=== PATIENT | female | born 1985 ===

== ENCOUNTER 2020-03-03 15:46 | Emergency (ER) | payer OTHER, SELFPAY ==
[2020-03-03 17:04] VITALS: BP 102/57; PULSE 94; RESP 16; TEMP 38.2; O2SAT 100; BMI 22.4
--- NOTE | 2020-03-03 17:09 | ED_ITS ---
HPI - General Adult General Chief complaint: General Medical Stated complaint: back pain Time Seen by Provider: 03/03/20 17:09 Source: patient Mode of arrival: ambulatory Limitations: no limitations History of Present Illness HPI narrative: This is a 35-year-old female with past medical history that is significant for migraine headaches, history of bilateral kidney stones and history of a acute pyelonephritis with surgical history of appendectomy patient, Caesarean section and status post tubal ligation who presents today with complaint right flank pain with history of kidney stones and states that she usually gets UTI with flank pain but no dysuria or other symptoms. States she has had similar symptoms in the past with prior UTI. Additionally she also reports that she has had a left breast lump which she actually had a mammogram done yesterday [facility] and was told she had multiple lumps in the left breast awaiting further evaluation of this. States symptoms going on for 1 day in relation to the flank pain. There is no nausea vomiting or diarrhea. Onset (ago): day(s) (1) Quality: aching Relieving factors: none Exacerbating factors: none Treatments prior to arrival: none Related Data Previous Rx's Medication Instructions Recorded cefuroxime axetil 500 mg PO BID 7 Days #14 tab 03/03/20 ibuprofen 800 mg PO Q8H PRN #30 tab 03/03/20 sulfamethoxazole-trimethoprim 1 tab PO Q12H 7 Days #14 tab 03/03/20 [Bactrim DS] cefuroxime axetil 500 mg PO Q12H #14 tab 03/04/20 sulfamethoxazole-trimethoprim 1 tab PO Q12H #14 tab 03/04/20 [Bactrim DS] Allergies Allergy/AdvReac Type Severity Reaction Status Date / Time ethinyl estradiol [NuvaRing] Allergy Unknown yeast Verified 07/30/19 00:00 infection etonogestrel [NuvaRing] Allergy Unknown yeast Verified 07/30/19 00:00 infection medroxyprogesterone Allergy Unknown facial acne Verified 07/30/19 00:00 [Depo-Provera] No Known Allergies Allergy Unverified 11/26/19 16:12 Review of Systems Review of Systems: Constitutional: No Weight loss, No Fever, + Chills, No Night Sweats, No Fatigue, No Malaise ENT/Mouth: No Hearing loss, No Ear Pain, No Nasal Congestion, No Sinus Pain, No Hoarseness, No sore throat, No Rhinorrhea, No Swallowing Difficulty Eyes: No Eye Pain, No Swelling, No Redness, No Foreign Body, No Discharge, No Vision Changes Cardiovascular: No Chest Pain, No SOB, No Dyspnea on Exertion, No Orthopnea, No Edema, No Palpitations Respiratory: No Cough, No Sputum, No Wheezing, No Smoke Exposure, No Dyspnea Gastrointestinal: No Nausea, No Vomiting, No Diarrhea, No Constipation, No abdominal Pain, No Hematochezia, No Melena Genitourinary: no irregular bleeding, No Dysuria, No Urinary Frequency, No Hematuria, No Urinary Incontinence, No Urgency, + Flank Pain, No Urinary Flow Changes, No Hesitancy Musculoskeletal: No joint pain, No Myalgias, No Joint Swelling Skin: No Skin Lesions, No rash Neuro: No Weakness, No Numbness, No Paresthesias, No Loss of Consciousness, No Dizziness, No Headache Psych: No Social Issues Heme/Lymph: No Bruising, No Bleeding,No Lymphadenopathy Endocrine: No Polyuria, No Polydipsia, No Temperature Intolerance [facility] Past Medical History Medical History (Updated 03/04/20 @ 12:26 by Sumanth Brannon NP) Kidney stones Migraine headache Pyelonephritis Surgical History (Updated 03/04/20 @ 12:26 by Sumanth Brannon NP) H/O tubal ligation : 5 Para: 5 Social History Social History Advance Directives: No Advance Directives Information Provided: Yes Physical Exam Vital Signs: Vital Signs: Last Vital Signs Temp 100.1 F 03/03/20 18:00 Pulse 66 03/03/20 21:08 Resp 18 03/03/20 21:08 BP 96/57 L 03/03/20 21:08 Pulse Ox 98 03/03/20 21:08 Body Mass Index 22.4 Reviewed Const: General: cooperative and healthy appearing; No acute distress or intoxicated appearing Nutritional Appearance: average body habitus Orientation/consciousness: patient oriented x3 HENMT: Head: Yes normal to inspection Ears: hearing grossly normal bilaterally Eyes: General: appearance normal, both eyes and all related structures Visual Still: normal visual still by confrontation Neck: Neck: Yes normal visual inspection, No positive Brudzinski's sign, No positive Kernig's sign and No tender Thyroid: Thyroid normal Chest: Other: Nirupa optical technician present for color tester Chest palpation & i nspection: normal inspection of the chest, normal palpation of entire chest wall and no crepitus Breast/axilla inspection: normal inspection of the axillae Breast/axilla palpation: normal palpation of the axillae and abnormal palpation of the axilla left mass, tenderness and other (at 10 o'clock ); no induration Resp: Effort & Inspection: normal respiratory effort Auscultation: clear to auscultation bilaterally Cardio: Jugular venous distension: no JVD GI: Inspection: Yes normal to inspection Percussion: Yes normal to percussion Auscultation: normal bowel sounds : General: Yes no CVA tenderness Back/Spine/Pelvis: Back: no CVA tenderness Skin: General skin exam: no rashes or lesions noted Neuro: General: patient oriented x3 Extrem: General: Yes normal to inspection Course Course Course Narrative: Urine culture from 09/02/2019 grew out E coli sensitive to multiple antibiotics including ampicillin, ceftriaxone, gentamicin, levofloxacin, nitrofurantoin, Bactrim. ESBL negative. Medical Decision Making [facility] Narrative Medical decision making narrative: Lab shows leukocytosis of 16, negative lactic acid, renal function intact. Urine equivocal will send for culture. Given dose of antibiotics for presumed urinary source, as relates to the left breast lump had evaluation at the breast center in [place] had mammo done today will follow-up for further evaluation treatment. Findings/plan reviewed urine/blood cultures sent. Will discharge home as she is requesting to go home overall nontoxic appearing sure decision making regarding when to return, worsening and systemic symptoms. Medical Records Medical records reviewed: Yes I reviewed the patient's medical records. Medical records narrative: 09/02/2019 admission/discharge reviewed admitted for acute pyelonephritis, Gram-negative bacteremia Lab Data Result diagrams: 03/03/20 18:05 03/03/20 18:05 Labs: Lab Results 03/03/20 03/03/20 03/03/20 Range/Units 18:05 18:05 18:05 WBC 16.6 H (4.8-10.8) X10*3/uL RBC 3.58 L (4.20-5.50) X10*6/uL Hgb 11.8 L (12.0-16.0) g/dl Hct 35.6 L (37-47) % MCV 99.4 H (80-98) fL MCH 33.0 (27.0-33.0) pg MCHC 33.1 (31.0-35.0) g/dl RDW 11.9 (11.0-16.0) % Plt Count 214 (160-400) X10*3/uL MPV 9.7 (9.4-12.3) fL Immature Gran % (Auto) 0.5 H (0.0-0.4) % Neut % (Auto) 92.8 H (45-73) % Lymph % (Auto) 2.4 L (20-40) % [place] % (Auto) 4.0 (2-11) % Eos % (Auto) 0.1 (0-4) % Baso % (Auto) 0.2 (0-2) % Lymph # (Auto) 0.4 L (1.2-4.9) X10*3/uL [place] # (Auto) 0.7 (0.1-1.2) X10*3/uL Eos # (Auto) 0.0 (0.0-0.4) X10*3/uL Baso # (Auto) 0.0 (0.0-0.2) X10*3/uL Abs Immat Gran (auto) 0.09 H (0.00-0.03) X10*3/uL Absolute Neuts (auto) 15.4 H (2.0-8.3) X10*3/uL Absolute Nucleated RBC 0.000 (0.0-0.012) X10*3/uL Nucleated RBC % (auto) 0.0 (0.0-0.2) /100WBC Smear Tech's Comments VERIFIED PT 13.5 H (10.8-13.0) SEC INR 1.1 (0.9-1.1) APTT 38.4 H (24.1-38.0) SEC Sodium 135 (135-145) mmol/L Potassium 3.6 (3.3-5.1) mmol/l Chloride 101 (96-108) mmol/L Carbon Dioxide 25 (22-29) mmol/L Anion Gap 13 (12-20) BUN 18 H (9-16) mg/dL Creatinine 0.77 (0.5-1.4) mg/dL Estim Creat Clear Calc 72.5 Estimated GFR > 60 Random Glucose 91 (60-115) mg/dL Lactic Acid (0.5-2.0) mmol/L Calcium 8.7 (8.4-10.2) mg/dL Total Bilirubin 0.5 (0.0-1.0) mg/dL AST 21 (5-31) U/L ALT 16 (0-31) U/L Alkaline Phosphatase 49 (39-117) U/L Total Protein 6.9 (6.5-8.0) g/dL Albumin 4.3 (3.5-5.0) g/dL Urine Color Urine Appearance Urine pH (5.0-8.0) Ur Specific [place] (1.005-1.025) Urine Protein (NEG-TRACE) MG/DL Urine Glucose (UA) (NEG) MG/DL Urine Ketones (NEG) MG/DL Urine Blood (NEG) Urine Nitrite (NEG) Ur Leukocyte Esterase (NEG) Urine RBC (0) /HPF Urine WBC (0-4) /HPF Ur Squamous Epith Cells /LPF Urine Bacteria /LPF Urine Test (NEGATIVE) Coronavirus (PCR) (Negative) Influenza Type A (PCR) (Negative) Influenza Type B (PCR) (Negative) RSV RNA Qual (PCR) (Negative) 03/03/20 03/03/20 03/03/20 Range/Units 18:05 18:06 19:02 WBC (4.8-10.8) X10*3/uL RBC (4.20-5.50) X10*6/uL Hgb (12.0-16.0) g/dl Hct (37-47) % MCV (80-98) fL MCH (27.0-33.0) pg MCHC (31.0-35.0) g/dl RDW (11.0-16.0) % Plt Count (160-400) X10*3/uL MPV (9.4-12.3) fL Immature Gran % (Auto) (0.0-0.4) % Neut % (Auto) (45-73) % Lymph % (Auto) (20-40) % [place] % (Auto) (2-11) % Eos % (Auto) (0-4) % Baso % (Auto) (0-2) % Lymph # (Auto) (1.2-4.9) X10*3/uL [place] # (Auto) (0.1-1.2) X10*3/uL Eos # (Auto) (0.0-0.4) X10*3/uL Baso # (Auto) (0.0-0.2) X10*3/uL Abs Immat Gran (auto) (0.00-0.03) X10*3/uL Absolute Neuts (auto) (2.0-8.3) X10*3/uL Absolute Nucleated RBC (0.0-0.012) X10*3/uL Nucleated RBC % (auto) (0.0-0.2) /100WBC Smear Tech's Comments PT (10.8-13.0) SEC INR (0.9-1.1) APTT (24.1-38.0) SEC Sodium (135-145) mmol/L Potassium (3.3-5.1) mmol/l Chloride (96-108) mmol/L Carbon Dioxide (22-29) mmol/L Anion Gap (12-20) BUN (9-16) mg/dL Creatinine (0.5-1.4) mg/dL Estim Creat Clear Calc Estimated GFR Random Glucose (60-115) mg/dL Lactic Acid 0.7 (0.5-2.0) mmol/L Calcium (8.4-10.2) mg/dL Total Bilirubin (0.0-1.0) mg/dL AST (5-31) U/L ALT (0-31) U/L Alkaline Phosphatase (39-117) U/L Total Protein (6.5-8.0) g/dL Albumin (3.5-5.0) g/dL Urine Color YELLOW Urine Appearance CLEAR Urine pH 6.5 (5.0-8.0) Ur Specific [place] 1.020 (1.005-1.025) Urine Protein NEG (NEG-TRACE) MG/DL Urine Glucose (UA) NEG (NEG) MG/DL Urine Ketones NEG (NEG) MG/DL Urine Blood 3+ H (NEG) Urine Nitrite NEG (NEG) Ur Leukocyte Esterase NEG (NEG) Urine RBC 10-14 H (0) /HPF Urine WBC 0 (0-4) /HPF Ur Squamous Epith Cells TRACE /LPF Urine Bacteria NONE /LPF Urine Test NEGATIVE (NEGATIVE) Coronavirus (PCR) NEGATIVE (Negative) Influenza Type A (PCR) NEGATIVE (Negative) Influenza Type B (PCR) NEGATIVE (Negative) RSV RNA Qual (PCR) NEGATIVE (Negative) Imaging Data Abdominal/pelvis CT: Radiologist's impression: Sign [address] [address] [address] Scan Report Signed Patient: Angeline Riggs GMR#: [id number] : 1985Acct:[id number] Age/Sex: 35 / FADM Date: 03/03/20 Loc: HO.ED Attending Dr: Ordering Physician: Sumanth Brannon NP Date of Service: 03/03/20 Procedure(s): CT abdomen pelvis wo con Accession Number(s): [id number] cc: Sumanth Brannon CARTOGRAPHIC DRAFTER~ EXAMINATION: CT ABDOMEN AND PELVIS WITHOUT CONTRAST CLINICAL INFORMATION: Fever and flank pain COMPARISON: 08/31/2019 TECHNIQUE: Multidetector volumetric imaging was performed from the superior aspect of the liver through the pubic symphysis. Sagittal and coronal reformatted images were obtained on the technologist's workstation. This CT examination was performed using dose optimization techniques as appropriate, variously including the following: *Automated exposure control *Adjustment of mA and/or kV according to patient size (this includes techniques or standardized protocols for targeted exams where dose is matched to indication/reason for exam; i.e. extremities or head) *Use of iterative reconstruction technique DLP: 343 mGy-cm FINDINGS: LUNG BASES: The visualized lung bases are unremarkable. LIVER, GALLBLADDER, AND BILIARY TREE: The liver is normal in size, shape, and attenuation. No focal hepatic lesion or biliary ductal dilatation is present. The gallbladder is unremarkable with no evidence of radiopaque gallstones, gallbladder wall thickening, or obvious pericholecystic inflammatory changes. PANCREAS: Unremarkable. SPLEEN: Unremarkable. ADRENAL GLANDS: Unremarkable. KIDNEYS AND URETERS: The kidneys are normal in size, shape, and attenuation. Bilateral nonobstructive intrarenal calculi #4 on the left and one on the right. Left-sided calculi range in size from punctate to 3 mm. The right-sided calculus is punctate. No hydronephrosis, or hydroureter. No perinephric stranding. BLADDER: Unremarkable. GASTROINTESTINAL TRACT: No bowel related abnormalities. ABDOMINAL WALL: No significant hernia is appreciated. LYMPH NODES: Normal. VASCULAR: Unremarkable. PELVIC VISCERA: Uterus and adnexa unremarkable. OSSEOUS STRUCTURES: Unremarkable. CT/CT abdomen pelvis wo con IMPRESSION: Bilateral nonobstructive intrarenal calculi as described. Previously, there was a 1 to 2 mm calculus within the interpolar region of the right kidney which is no longer present. This may have passed in the interim. No ureteral calculi or hydronephrosis. Dictated By:EVONNE PONCE MD Signed By:<Electronically signed by EVONNE PONCE MD in OV>03/03/20 193 DD/ 30 TD/TT: Recreational Director: JABARI Chest x-ray: Radiologist's impression: [address] [address] XRay Report Signed Patient: Angeline Riggs GMR#: [id number] : 1985Acct:[id number] Age/Sex: 35 / FADM Date: 03/03/20 Loc: .ED Attending Dr: Ordering Physician: Sumanth Brannon NP Date of Service: 03/03/20 Procedure(s): XR chest 1V Accession Number(s): [id number] cc: Sumanth Brannon NP~ EXAMINATION: XR CHEST CLINICAL INFORMATION: Fever. Chest pain COMPARISON: None TECHNIQUE: Frontal portable view of the chest was obtained. 6:28 PM FINDINGS: No significant abnormality is noted involving the heart, lungs, mediastinum, bony thorax or soft tissues. XR/XR chest 1V IMPRESSION: Unremarkable examination. Dictated By:TARUN LIZAMA MD Signed By:<Electronically signed by TARUN LIZAMA MD in OV>03/03/20 184 DD/ 30 TD/TT: Recreational Director: SANGITA Discharge Plan Discharge Clinical Impression: Breast lump or mass, Urinary tract infection Patient Disposition: Home, Self-Care Instructions: Breast Mass (ED), Urinary Urgency and Frequency (DC) Additional Instructions: Take your medications as prescribed Follow-up with the breast Center as planned for further investigation into the left breast lump Return if any concerns or worsening symptoms Thank you Prescriptions: New cefuroxime axetil 500 mg tablet 500 mg PO BID 7 Days Qty: 14 RF: 0 sulfamethoxazole-trimethoprim [Bactrim DS] 800-160 mg tablet 1 tab PO Q12H 7 Days Qty: 14 RF: 0 ibuprofen 800 mg tablet 800 mg PO Q8H PRN (Reason: pain) Qty: 30 RF: 0 cefuroxime axetil 500 mg tablet 500 mg PO Q12H Qty: 14 RF: 0 sulfamethoxazole-trimethoprim [Bactrim DS] 800-160 mg tablet 1 tab PO Q12H Qty: 14 RF: 0 Referrals: [facility] [place] [Other] - 2 days Michelle Wong MD [Primary Care Provider] - 1 week Discharge Date/Time: 03/03/20 21:16
[2020-03-03 18:00] VITALS: BP 92/37; PULSE 77; RESP 17; TEMP 37.8
[2020-03-03 18:22] LABS: Glucose Urine UA NEG (NEG); Leukocyte Esterase Urine NEG (NEG); Nitrite Urine NEG (NEG); PH 6.5 (5.0-8.0); Urine Blood 3+ (NEG); Urine Ketones NEG (NEG); Urine Protein NEG (NEG-TRACE)
[2020-03-03 18:23] LABS: Appearance Urine CLEAR; Color Urine YELLOW
[2020-03-03 18:28] LABS: INTERNATIONAL NORM RATIO 1.1 (0.9-1.1); Prothrombin Time 13.5 SEC (10.8-13.0)
[2020-03-03 18:31] LABS: Partial Thromboplastin Time 38.4 SEC (24.1-38.0)
--- NOTE | 2020-03-03 18:31 | XR_ITS ---
EXAMINATION: XR CHEST CLINICAL INFORMATION: Fever. Chest pain COMPARISON: None TECHNIQUE: Frontal portable view of the chest was obtained. 6:28 PM FINDINGS: No significant abnormality is noted involving the heart, lungs, mediastinum, bony thorax or soft tissues. XR/XR chest 1V IMPRESSION: Unremarkable examination.
--- NOTE | 2020-03-03 18:31 | CT_ITS ---
EXAMINATION: CT ABDOMEN AND PELVIS WITHOUT CONTRAST CLINICAL INFORMATION: Fever and flank pain COMPARISON: 08/31/2019 TECHNIQUE: Multidetector volumetric imaging was performed from the superior aspect of the liver through the pubic symphysis. Sagittal and coronal reformatted images were obtained on the technologist's workstation. This CT examination was performed using dose optimization techniques as appropriate, variously including the following: *Automated exposure control *Adjustment of mA and/or kV according to patient size (this includes techniques or standardized protocols for targeted exams where dose is matched to indication/reason for exam; i.e. extremities or head) *Use of iterative reconstruction technique DLP: 343 mGy-cm FINDINGS: LUNG BASES: The visualized lung bases are unremarkable. LIVER, GALLBLADDER, AND BILIARY TREE: The liver is normal in size, shape, and attenuation. No focal hepatic lesion or biliary ductal dilatation is present. The gallbladder is unremarkable with no evidence of radiopaque gallstones, gallbladder wall thickening, or obvious pericholecystic inflammatory changes. PANCREAS: Unremarkable. SPLEEN: Unremarkable. ADRENAL GLANDS: Unremarkable. KIDNEYS AND URETERS: The kidneys are normal in size, shape, and attenuation. Bilateral nonobstructive intrarenal calculi #4 on the left and one on the right. Left-sided calculi range in size from punctate to 3 mm. The right-sided calculus is punctate. No hydronephrosis, or hydroureter. No perinephric stranding. BLADDER: Unremarkable. GASTROINTESTINAL TRACT: No bowel related abnormalities. ABDOMINAL WALL: No significant hernia is appreciated. LYMPH NODES: Normal. VASCULAR: Unremarkable. PELVIC VISCERA: Uterus and adnexa unremarkable. OSSEOUS STRUCTURES: Unremarkable. CT/CT abdomen pelvis wo con IMPRESSION: Bilateral nonobstructive intrarenal calculi as described. Previously, there was a 1 to 2 mm calculus within the interpolar region of the right kidney which is no longer present. This may have passed in the interim. No ureteral calculi or hydronephrosis.
[2020-03-03 18:41] LABS: Basophils Percent Auto 0.2 % (0-2); Eosinophils Percent Auto 0.1 % (0-4); Hematocrit 35.6 % (37-47); Hemoglobin 11.8 g/dl (12.0-16.0); Imm Gran Abs Auto 0.09 X10*3/uL (0.00-0.03); Imm Gran Pct Auto 0.5 % (0.0-0.4); Lactic Acid 0.7 mmol/L (0.5-2.0); Lymphocytes Absolute Auto 0.4 X10*3/uL (1.2-4.9); Lymphocytes Percent Auto 2.4 % (20-40); MANUAL DIFF FLAG SCAN; Mean Corpuscular HGB Conc 33.1 g/dl (31.0-35.0); Mean Corpuscular Volume 99.4 fL (80-98); Mean Platelet Volume 9.7 fL (9.4-12.3); Monocytes Absolute Auto 0.7 X10*3/uL (0.1-1.2); Neutrophils Absolute Auto 15.4 X10*3/uL (2.0-8.3); Neutrophils Percent Auto 92.8 % (45-73); Platelet Count 214 X10*3/uL (160-400); Red Blood Count 3.58 X10*6/uL (4.20-5.50); Red Cell Distribution Width 11.9 % (11.0-16.0); SCAN SMEAR FLAG 1; White Blood Count 16.6 X10*3/uL (4.8-10.8)
[2020-03-03] MEDS: 0.9 % Sodium Chloride 1,000 ML 999 ML IV (18:43)
[2020-03-03] MEDS: Morphine Sulfate 4 MG/ML CARTRIDGE 2 MG IVPUSH (18:44)
[2020-03-03 18:46] LABS: Alanine Aminotransferase 16 U/L (0-31); Albumin Level 4.3 g/dL (3.5-5.0); Alkaline Phosphatase 49 U/L (39-117); Anion Gap 13 (12-20); Aspartate Amino Transferase 21 U/L (5-31); Bilirubin Total 0.5 mg/dL (0.0-1.0); Blood Urea Nitrogen 18 mg/dL (9-16); Calcium 8.7 mg/dL (8.4-10.2); Carbon Dioxide 25 mmol/L (22-29); Chloride 101 mmol/L (96-108); Creatinine Clr Calc Pharmacy 72.5; Estimated Glomerular Filt Rate > 60; Glucose Random 91 mg/dL (60-115); Potassium 3.6 mmol/l (3.3-5.1); Sodium 135 mmol/L (135-145); Total Protein 6.9 g/dL (6.5-8.0)
[2020-03-03 18:46] LABS: Squamous Epithelial Cell Urine TRACE /LPF; WBC Urine 0 /HPF (0-4)
[2020-03-03 18:47] LABS: UPreg QC Valid YES; Urine Pregnancy NEGATIVE (NEGATIVE)
[2020-03-03] MEDS: Acetaminophen 325 MG TABLET 975 MG PO (18:47)
[2020-03-03 19:33] LABS: SLIDE REVIEW VERIFIED
[2020-03-03 20:12] LABS: Influenza A PCR NEGATIVE (Negative); Influenza B PCR NEGATIVE (Negative); Resp Syncy Virus RNA Qual PCR NEGATIVE (Negative); SARS COV2 PCR INHOUSE NEGATIVE (Negative)
[2020-03-03] MEDS: Ketorolac Tromethamine 30 MG/ML VIAL IVPUSH (20:31)
[2020-03-03 21:08] VITALS: BP 96/57; PULSE 66; RESP 18; O2SAT 98
[2020-03-03] MEDS: levoFLOXacin 750 MG TABLET PO (21:09)
== END 2020-03-03 21:16 | disposition home or self-care (01) ==
PROVIDERS: Nurse Practitioner Primary Care; Emergency Provider Emergency Medicine; PCP Internal Medicine
DX: N63.20 Unspecified lump in the left breast, unspecified quadrant (principal); N39.0 Urinary tract infection, site not specified; Z20.828 Contact with and (suspected) exposure to other viral communicable diseases; Z87.442 Personal history of urinary calculi
CPT/HCPCS: 0241U; 36415; 71045; 74176; 80053; 81001; 81025; 83605; 85025; 85610; 85730; 87040; 96361; 96374; 96375; 99283; 99284; J1885; J2270

== ENCOUNTER 2020-03-05 19:38 | Emergency (ER) | payer OTHER, SELFPAY ==
[2020-03-05 19:51] VITALS: BP 111/64; PULSE 71; RESP 16; TEMP 37; O2SAT 98; BMI 22.2
== END 2020-03-05 21:41 | disposition left against medical advice (07) ==
PROVIDERS: Emergency Provider Emergency Medicine; PCP Internal Medicine
DX: R11.10 Vomiting, unspecified (principal); M54.5 Low back pain
CPT/HCPCS: 99282

== ENCOUNTER 2020-08-07 17:17 | Inpatient (IN) | payer OTHER, SELFPAY ==
--- NOTE | ~2020-08-07 | CT_ITS ---
EXAMINATION: CT ABDOMEN AND PELVIS WITHOUT CONTRAST CLINICAL INFORMATION: Flank pain. Fever. Prior pyelonephritis. COMPARISON: Post recent CT abdomen/pelvis dated 03/03/2020. TECHNIQUE: Multidetector volumetric imaging was performed from the superior aspect of the liver through the pubic symphysis. Sagittal and coronal reformatted images were obtained on the technologist's workstation. This CT examination was performed using dose optimization techniques as appropriate, variously including the following: *Automated exposure control. *Adjustment of mA and/or kV according to patient size (this includes techniques or standardized protocols for targeted exams where dose is matched to indication/reason for exam; i.e. extremities or head). *Use of iterative reconstruction technique. DLP: 332 mGy-cm FINDINGS: LUNG BASES: The visualized lung bases are unremarkable. LIVER, GALLBLADDER, AND BILIARY TREE: The liver is normal in size, shape, and attenuation. No focal hepatic lesion or biliary ductal dilatation is present. The gallbladder is nondistended with no evidence of radiopaque gallstones, gallbladder wall thickening, or obvious pericholecystic inflammatory changes. PANCREAS: Unremarkable. SPLEEN: Unremarkable. ADRENAL GLANDS: Unremarkable. KIDNEYS AND URETERS: The kidneys are normal in size, shape, and attenuation. There is a right midpole renal stone measuring 0.2 cm (axial image 228/661). There are multiple left-sided renal stones with the largest in the lower pole measuring up to 0.4 cm. Findings are unchanged when compared to the prior examination. No ureteral stone. No hydronephrosis or hydroureter. No perinephric stranding. BLADDER: Nondistended. Circumferential wall thickening, which may be due to underdistention. Early cystitis could be considered in the appropriate clinical setting. GASTROINTESTINAL TRACT: No bowel wall thickening or associated inflammatory change. No small or large bowel obstruction. Appendix not identified. PERITONEAL CAVITY: No intra-abdominal free air or free fluid. No intra-abdominal mass or organized fluid collection/abscess formation. ABDOMINAL WALL: No significant hernia is appreciated. LYMPH NODES: Normal. VASCULAR: Unremarkable. PELVIC VISCERA: The uterus and adnexa are unremarkable. OSSEOUS STRUCTURES: Unremarkable. CT/CT abdomen pelvis wo con IMPRESSION: 1. Bilateral renal stones are redemonstrated with the largest measuring up to 0.4 cm on the left. No ureteral stone. No hydronephrosis or hydroureter. No significant perinephric stranding. 2. Partially distended urinary bladder with circumferential wall thickening. Findings may be due to underdistention. Early cystitis could be considered in the appropriate clinical setting.
[2020-08-07 17:21] VITALS: BP 95/51; PULSE 94; RESP 16; TEMP 37.6; O2SAT 97; BMI 20.7
--- NOTE | 2020-08-07 17:36 | ED_ITS ---
HPI - Female Genitourinary General Chief complaint: Urogenital-Female Stated complaint: back pain, + fall Time Seen by Provider: 08/07/20 17:31 Source: patient Mode of arrival: ambulatory Limitations: no limitations History of Present Illness HPI Narrative: 35-year-old female with past medical history of salpingectomy, recurrent pyelonephritis, kidney stones presents with left-sided flank pain radiating around the pelvis, dysuria, subjective fevers and chills, and fatigue over the past 1 day. She does not describe chest pain or pressure, palpitations, shortness of breath, shortness of breath on exertion, abdominal distention, vomiting, diarrhea, constipation, hematuria, melena, hematochezia and edema. MD elicited complaint: back pain, flank pain and difficulty urinating Pertinent past history: pyelonephritis Onset (ago): day(s) (1) Location of symptoms: low back and flank Severity: severe Severity scale (1-10): 9 Quality of pain: aching Consistency: constant Vaginal discharge: none Vaginal bleeding: none Urinary symptoms: Dysuria and Urgency Relieving factors: none Associated symptoms: chills, nausea and back pain Treatment prior to arrival: none Patient : No Possible : other (Salpingectomy) Related Data Previous Rx's Medication Instructions Recorded cefuroxime axetil 500 mg PO BID 7 Days #14 tab 03/03/20 ibuprofen 800 mg PO Q8H PRN #30 tab 03/03/20 sulfamethoxazole-trimethoprim 1 tab PO Q12H 7 Days #14 tab 03/03/20 [Bactrim DS] cefuroxime axetil 500 mg PO Q12H #14 tab 03/04/20 sulfamethoxazole-trimethoprim 1 tab PO Q12H #14 tab 20 [Bactrim DS] Allergies Allergy/AdvReac Type Severity Reaction Status Date / Time ethinyl estradiol [NuvaRing] Allergy Unknown yeast Verified 08/07/20 17:26 infection etonogestrel [NuvaRing] Allergy Unknown yeast Verified 08/07/20 17:26 infection medroxyprogesterone Allergy Unknown facial acne Verified 08/07/20 17:26 [Depo-Provera] No Known Allergies Allergy Verified 08/07/20 17:26 Review of Systems Review of Systems: Constitutional: Subjective Fever, positive Chills ENT/Mouth: No sore throat Eyes: No Eye Pain, No Swelling, No Redness Cardiovascular: No Chest Pain, No SOB Respiratory: No Cough, No Sputum, No Wheezing Gastrointestinal: positive Nausea, no Vomiting, No Diarrhea, positive abdominal pain Genitourinary: positive Dysuria, positive urinary frequency, positive Hematuria, positive Flank Pain, positive hesitancy Musculoskeletal: No joint pain, No Myalgias Skin: No Skin Lesions, No rash Neuro: No Weakness, No Numbness, No Headache Psych: No Anxiety/Panic, No Depression Heme/Lymph: No Bruising, No Lymphadenopathy Endocrine: No Polyuria, No Polydipsia Yes all other systems are reviewed and are negative [facility] Past Medical History Attestation statement: The following information was validated with the patient. Source: old records reviewed Medical History Kidney stones Migraine headache Pyelonephritis Surgical History H/O tubal ligation Social History Social History Alcohol intake: never Smoked in Last 30 Days: No Use of substances other than those prescribed or required for medical reasons: No Advance Directives: No Advance Directives Information Provided: No Patient : No Physical Exam Vital Signs: Vital Signs: Last Vital Signs Temp 99.6 F 08/07/20 17:21 Pulse 94 08/07/20 17:21 Resp 16 08/07/20 20:07 BP 95/51 L 08/07/20 17:21 Pulse Ox 97 08/07/20 17:21 Body Mass Index 20.7 Appearance: Alert. Oriented X3. No acute distress. Eyes: Pupils equal, round and reactive to light. ENT: Pharynx normal. Neck: Normal inspection. Neck supple. CVS: Normal heart rate and rhythm. Pulses normal. Respiratory: No respiratory distress. Breath sounds normal. Abdomen: Soft and nontender. Positive bilateral CVA tenderness Skin: Skin warm and dry. Normal skin color. Normal skin turgor. Extremities: No lower extremity edema. Neuro: No motor deficit. No sensory deficit. Course Course Course Narrative: 35-year-old female with past medical history of recurrent pyelonephritis, kidney stones, salpingectomy presents with 1 day of flank pain, urinary symptoms, and subjective fevers and chills with fatigue. Based on patient's prior history, CT scan on 02/27 reviewed has had history of multiple kidney stones or pyelonephritis. Will order pain management, antiemetics, resuscitate with fluids, lab values and repeat CT scan to rule out pyelo. 6:37 p.m. Urinalysis positive for UTI, white count is 16.8, H and H 11.4/33.8 which is consistent with prior values. Will resuscitate fluids for sepsis protocol, give ceftriaxone for UTI. 7:15 p.m. Discussion with hospitalist regarding plan of care, plan is to admit for UTI sepsis. Discussion with patient, patient verbalized understanding of and agrees to plan of care. Consultations Consultation #1: jones Time: 19:15 MDM - Female Genitourinary MDM Narrative Medical decision making narrative: Pyelonephritis, hydro nephritis, kidney stones Differential Diagnosis Differential diagnosis: Likely urinary tract infection Medical Records Attestation: I reviewed the patient's medical records. Lab Data Attestation: I reviewed the patient's lab results. Result diagrams: 08/07/20 17:58 08/07/20 17:58 Labs: Lab Results 08/07/20 08/07/20 08/07/20 Range/Units 17:33 17:58 17:58 WBC 16.8 H (4.8-10.8) X10*3/uL RBC 3.42 L (4.20-5.50) X10*6/uL Hgb 11.4 L (12.0-16.0) g/dl Hct 33.8 L (37-47) % MCV 98.8 H (80-98) fL MCH 33.3 H (27.0-33.0) pg MCHC 33.7 (31.0-35.0) g/dl RDW 12.4 (11.0-16.0) % Plt Count 201 (160-400) X10*3/uL MPV 9.2 L (9.4-12.3) fL Immature Gran % (Auto) 0.5 H (0.0-0.4) % Neut % (Auto) 89.2 H (45-73) % Lymph % (Auto) 3.2 L (20-40) % [place] % (Auto) 6.8 (2-11) % Eos % (Auto) 0.1 (0-4) % Baso % (Auto) 0.2 (0-2) % Lymph # (Auto) 0.5 L (1.2-4.9) X10*3/uL [place] # (Auto) 1.1 (0.1-1.2) X10*3/uL Eos # (Auto) 0.0 (0.0-0.4) X10*3/uL Baso # (Auto) 0.0 (0.0-0.2) X10*3/uL Abs Immat Gran (auto) 0.08 H (0.00-0.03) X10*3/uL Absolute Neuts (auto) 15.0 H (2.0-8.3) X10*3/uL Absolute Nucleated RBC 0.000 (0.0-0.012) X10*3/uL Nucleated RBC % (auto) 0.0 (0.0-0.2) /100WBC Smear Tech's Comments VERIFIED PT 14.7 H (10.8-13.0) SEC INR 1.2 H (0.9-1.1) APTT 36.3 (24.1-38.0) SEC Sodium (135-145) mmol/L Potassium (3.3-5.1) mmol/L Chloride (96-108) mmol/L Carbon Dioxide (22-29) mmol/L Anion Gap (12-20) BUN (9-16) mg/dL Creatinine (0.5-1.4) mg/dL Estim Creat Clear Calc Estimated GFR Random Glucose (60-115) mg/dL Lactic Acid (0.5-2.0) mmol/L Calcium (8.4-10.2) mg/dL Magnesium (1.6-2.6) mg/dL Total Bilirubin (0.0-1.0) mg/dL Direct Bilirubin (0.0-0.5) mg/dL AST (5-31) U/L ALT (0-31) U/L Alkaline Phosphatase (39-117) U/L Total Protein (6.5-8.0) g/dL Albumin (3.5-5.0) g/dL Lipase (8-78) U/L Urine Color YELLOW Urine Appearance CLOUDY Urine pH 6.5 (5.0-8.0) Ur Specific [place] 1.010 (1.005-1.025) Urine Protein 1+ H (NEG-TRACE) MG/DL Urine Glucose (UA) NEG (NEG) MG/DL Urine Ketones NEG (NEG) MG/DL Urine Blood 3+ H (NEG) Urine Nitrite POS H (NEG) Ur Leukocyte Esterase 3+ H (NEG) Urine RBC 1-4 (0) /HPF Urine WBC 15-29 H (0-4) /HPF Ur Squamous Epith Cells 4+ /LPF Urine Bacteria 3+ /LPF 08/07/20 08/07/20 08/07/20 Range/Units 17:58 17:58 17:58 WBC (4.8-10.8) X10*3/uL RBC (4.20-5.50) X10*6/uL Hgb (12.0-16.0) g/dl Hct (37-47) % MCV (80-98) fL MCH (27.0-33.0) pg MCHC (31.0-35.0) g/dl RDW (11.0-16.0) % Plt Count (160-400) X10*3/uL MPV (9.4-12.3) fL Immature Gran % (Auto) (0.0-0.4) % Neut % (Auto) (45-73) % Lymph % (Auto) (20-40) % [place] % (Auto) (2-11) % Eos % (Auto) (0-4) % Baso % (Auto) (0-2) % Lymph # (Auto) (1.2-4.9) X10*3/uL [place] # (Auto) (0.1-1.2) X10*3/uL Eos # (Auto) (0.0-0.4) X10*3/uL Baso # (Auto) (0.0-0.2) X10*3/uL Abs Immat Gran (auto) (0.00-0.03) X10*3/uL Absolute Neuts (auto) (2.0-8.3) X10*3/uL Absolute Nucleated RBC (0.0-0.012) X10*3/uL Nucleated RBC % (auto) (0.0-0.2) /100WBC Smear Tech's Comments PT (10.8-13.0) SEC INR (0.9-1.1) APTT (24.1-38.0) SEC Sodium 136 (135-145) mmol/L Potassium 4.3 (3.3-5.1) mmol/L Chloride 103 (96-108) mmol/L Carbon Dioxide 25 (22-29) mmol/L Anion Gap 12 (12-20) BUN 18 H (9-16) mg/dL Creatinine 0.77 (0.5-1.4) mg/dL Estim Creat Clear Calc 76.2 Estimated GFR > 60 Random Glucose 113 (60-115) mg/dL Lactic Acid 1.0 (0.5-2.0) mmol/L Calcium 8.9 (8.4-10.2) mg/dL Magnesium 1.8 (1.6-2.6) mg/dL Total Bilirubin 0.8 (0.0-1.0) mg/dL Direct Bilirubin 0.3 (0.0-0.5) mg/dL AST 24 (5-31) U/L ALT 13 (0-31) U/L Alkaline Phosphatase 50 (39-117) U/L Total Protein 6.6 (6.5-8.0) g/dL Albumin 3.9 (3.5-5.0) g/dL Lipase 32 (8-78) U/L Urine Color Urine Appearance Urine pH (5.0-8.0) Ur Specific [place] (1.005-1.025) Urine Protein (NEG-TRACE) MG/DL Urine Glucose (UA) (NEG) MG/DL Urine Ketones (NEG) MG/DL Urine Blood (NEG) Urine Nitrite (NEG) Ur Leukocyte Esterase (NEG) Urine RBC (0) /HPF Urine WBC (0-4) /HPF Ur Squamous Epith Cells /LPF Urine Bacteria /LPF Imaging Data CT scan - abdomen: Attestation: I personally reviewed and interpreted this imaging study as follows: Radiologist's impression: EXAMINATION: CT ABDOMEN AND PELVIS WITHOUT CONTRAST CLINICAL INFORMATION: Flank pain. Fever. Prior pyelonephritis. COMPARISON: Post recent CT abdomen/pelvis dated 03/03/2020. TECHNIQUE: Multidetector volumetric imaging was performed from the superior aspect of the liver through the pubic symphysis. Sagittal and coronal reformatted images were obtained on the technologist's workstation. This CT examination was performed using dose optimization techniques as appropriate, variously including the following: *Automated exposure control. *Adjustment of mA and/or kV according to patient size (this includes techniques or standardized protocols for targeted exams where dose is matched to indication/reason for exam; i.e. extremities or head). *Use of iterative reconstruction technique. DLP: 332 mGy-cm FINDINGS: LUNG BASES: The visualized lung bases are unremarkable. LIVER, GALLBLADDER, AND BILIARY TREE: The liver is normal in size, shape, and attenuation. No focal hepatic lesion or biliary ductal dilatation is present. The gallbladder is nondistended with no evidence of radiopaque gallstones, gallbladder wall thickening, or obvious pericholecystic inflammatory changes. PANCREAS: Unremarkable. SPLEEN: Unremarkable. ADRENAL GLANDS: Unremarkable. KIDNEYS AND URETERS: The kidneys are normal in size, shape, and attenuation. There is a right midpole renal stone measuring 0.2 cm (axial image 228/661). There are multiple left-sided renal stones with the largest in the lower pole measuring up to 0.4 cm. Findings are unchanged when compared to the prior examination. No ureteral stone. No hydronephrosis or hydroureter. No perinephric stranding. BLADDER: Nondistended. Circumferential wall thickening, which may be due to underdistention. Early cystitis could be considered in the appropriate clinical setting. GASTROINTESTINAL TRACT: No bowel wall thickening or associated inflammatory change. No small or large bowel obstruction. Appendix not identified. PERITONEAL CAVITY: No intra-abdominal free air or free fluid. No intra-abdominal mass or organized fluid collection/abscess formation. ABDOMINAL WALL: No significant hernia is appreciated. LYMPH NODES: Normal. VASCULAR: Unremarkable. PELVIC VISCERA: The uterus and adnexa are unremarkable. OSSEOUS STRUCTURES: Unremarkable. CT/CT abdomen pelvis wo con IMPRESSION: 1. Bilateral renal stones are redemonstrated with the largest measuring up to 0.4 cm on the left. No ureteral stone. No hydronephrosis or hydroureter. No significant perinephric stranding. 2. Partially distended urinary bladder with circumferential wall thickening. Findings may be due to underdistention. Early cystitis could be considered in the appropriate clinical setting. Critical Care Time Critical Care Time Critical Care Time: Yes Total Critical Care Time: 45 Attestation: I have personally provided critical care time exclusive of time spent on separately billable procedures. Time includes review of laboratory data, radiology results, discussion with consultants, and monitoring for potential decompensation. Interventions were performed as documented. Discharge Plan Discharge Clinical Impression: Kidney stone UTI (urinary tract infection) Qualifiers: Urinary tract infection type: acute cystitis Hematuria presence: with hematuria Qualified Code(s): N30.01 - Acute cystitis with hematuria Sepsis Qualifiers: Sepsis type: sepsis due to unspecified organism Sepsis acute organ dysfunction status: without acute organ dysfunction Qualified Code(s): A41.9 - Sepsis, unspecified organism Patient Disposition: Admitted As Inpatient
[2020-08-07 17:45] LABS: Glucose Urine UA NEG (NEG); Leukocyte Esterase Urine 3+ (NEG); Nitrite Urine POS (NEG); PH 6.5 (5.0-8.0); Urine Blood 3+ (NEG); Urine Ketones NEG (NEG); Urine Protein 1+ MG/DL (NEG-TRACE)
[2020-08-07 17:46] LABS: Appearance Urine CLOUDY; Color Urine YELLOW
[2020-08-07] MEDS: 0.9 % Sodium Chloride 1,000 ML 999 ML IVCONT ×2 (17:59→20:06)
[2020-08-07 18:05] LABS: Bacteria Urine 3+ /LPF; Squamous Epithelial Cell Urine 4+ /LPF
[2020-08-07 18:06] LABS: Basophils Percent Auto 0.2 % (0-2); Eosinophils Percent Auto 0.1 % (0-4); Hematocrit 33.8 % (37-47); Hemoglobin 11.4 g/dl (12.0-16.0); Imm Gran Abs Auto 0.08 X10*3/uL (0.00-0.03); Imm Gran Pct Auto 0.5 % (0.0-0.4); Lymphocytes Absolute Auto 0.5 X10*3/uL (1.2-4.9); Lymphocytes Percent Auto 3.2 % (20-40); MANUAL DIFF FLAG SCAN; Mean Corpuscular HGB Conc 33.7 g/dl (31.0-35.0); Mean Corpuscular Hemoglobin 33.3 pg (27.0-33.0); Mean Corpuscular Volume 98.8 fL (80-98); Mean Platelet Volume 9.2 fL (9.4-12.3); Monocytes Absolute Auto 1.1 X10*3/uL (0.1-1.2); Monocytes Percent Auto 6.8 % (2-11); Neutrophils Percent Auto 89.2 % (45-73); Platelet Count 201 X10*3/uL (160-400); Red Blood Count 3.42 X10*6/uL (4.20-5.50); Red Cell Distribution Width 12.4 % (11.0-16.0); SCAN SMEAR FLAG 1; White Blood Count 16.8 X10*3/uL (4.8-10.8)
[2020-08-07 18:12] LABS: INTERNATIONAL NORM RATIO 1.2 (0.9-1.1); Prothrombin Time 14.7 SEC (10.8-13.0)
[2020-08-07 18:15] LABS: Partial Thromboplastin Time 36.3 SEC (24.1-38.0)
[2020-08-07 18:29] LABS: Magnesium 1.8 mg/dL (1.6-2.6)
[2020-08-07 18:30] LABS: Alanine Aminotransferase 13 U/L (0-31); Albumin Level 3.9 g/dL (3.5-5.0); Alkaline Phosphatase 50 U/L (39-117); Anion Gap 12 (12-20); Aspartate Amino Transferase 24 U/L (5-31); Bilirubin Direct 0.3 mg/dL (0.0-0.5); Bilirubin Total 0.8 mg/dL (0.0-1.0); Blood Urea Nitrogen 18 mg/dL (9-16); Calcium 8.9 mg/dL (8.4-10.2); Carbon Dioxide 25 mmol/L (22-29); Chloride 103 mmol/L (96-108); Creatinine Clr Calc Pharmacy 76.2; Estimated Glomerular Filt Rate > 60; Glucose Random 113 mg/dL (60-115); Lipase 32 U/L (8-78); Potassium 4.3 mmol/L (3.3-5.1); Sodium 136 mmol/L (135-145); Total Protein 6.6 g/dL (6.5-8.0)
[2020-08-07 18:52] LABS: SLIDE REVIEW VERIFIED
[2020-08-07] MEDS: ondansetron HCL 4 MG/2 ML VIAL IVPUSH ×2 (18:57→22:05)
[2020-08-07 18:59] VITALS: RESP 16
[2020-08-07] MEDS: Morphine Sulfate 4 MG/ML CARTRIDGE IVPUSH (18:59)
[2020-08-07] MEDS: Ketorolac Tromethamine 30 MG/ML VIAL IVPUSH (19:03)
--- NOTE | 2020-08-07 19:24 | PM.IMHP ---
History of Present Illness Date of Service: 08/07/20 Chief Complaint: Bilateral flank pain 35Y Old female with a past medical history of renal stones, pyelonephritis presented to the hospital with a chief complaint of bilateral flank pain. Complains of subjective fevers. Mentions that she had symptoms similar to the prior episodes of pyelonephritis. Denies any numbness tingling. Denies any chest pain palpitations. Denies any nausea vomiting or diarrhea. Review of all other systems is negative except mentioned above ER course: Per ER team patient noted to have leukocytosis, CT scan showed renal calculi, no evidence of ureteral stone or patient received IV fluids in the ER. Blood pressure 95/51. Lactate within normal limits. [facility] Medical History Kidney stones Migraine headache Pyelonephritis Surgical History H/O tubal ligation Social History Household Members: Children Housing: House Alcohol intake: never Patient Tobacco Use Status: Current everyday Tobacco user Tobacco use type: Cigarette Cigarettes Per Day: 2 service: No Current occupational status: employed Meds Allergies Allergy/AdvReac Type Severity Reaction Status Date / Time ethinyl estradiol [NuvaRing] Allergy Unknown yeast Verified 08/12/20 10:40 infection etonogestrel [NuvaRing] Allergy Unknown yeast Verified 08/12/20 10:40 infection medroxyprogesterone Allergy Unknown facial acne Verified 08/12/20 10:40 [Depo-Provera] No Known Allergies Allergy Verified 08/12/20 10:40 Active Medications: Current Medications Generic Name Dose Route Start Last Admin Trade Name Freq PRN Reason Stop Dose Admin Acetaminophen 650 mg 08/07/20 19:20 Acetaminophen Supp 650 Mg Supp.Rect SC Q6H PRN Pain, Mild (Pain Scale 1-3) Sodium Chloride 1,000 mls @ 999 mls/hr 08/07/20 18:45 Ns IVCONT 08/07/20 19:45 .Q1H1M BARON Sodium Chloride 1,000 mls @ 100 mls/hr 08/07/20 19:30 Ns IVCONT .Q10H BARON Ceftriaxone Sodium 1 gm/ 50 mls @ 100 mls/hr 08/07/20 19:30 Sodium Chloride IV Q24H [facility] Sodium Chloride 3 ml 08/08/20 00:00 0.9 % Sodium Chloride Flush 3 Ml Syringe IVFLUSH QSHIFT [facility] Home Medications Medication Instructions Recorded Confirmed Last Taken Type fluticasone propionate 50 1 spray INTRANASAL DAILY 08/12/20 Unknown History mcg/actuation nasal spray,suspension ketotifen fumarate 0.025 % (0.035 drp OPHTHALMIC (EYE) 08/12/20 Unknown History %) eye drops Physical Exam Vital Signs and Narrative: Vital Signs: Last Vital Signs Temp 99.6 F 08/07/20 17:21 Pulse 94 08/07/20 17:21 Resp 16 08/07/20 18:59 BP 95/51 L 08/07/20 17: Pulse Ox 97 08/07/20 17:21 Body Mass Index 20.7 Gen: Appears be in no acute distress HEENT: NCAT, Moist mucosa. Pulmonary: Vesicular breath sounds, fair air entry CVS: Normal S1-S2 Abdomen: BS+, Soft, Nontender Extremities: Warm well perfused Neuro: Alert and awake. Results Labs CBC and Chem 7: 08/08/20 04:50 08/08/20 04:50 Labs: Laboratory Results - last 24 hr 08/07/20 08/07/20 08/07/20 17:33 17:58 17:58 MCV 98.8 H MCH 33.3 H MCHC 33.7 RDW 12.4 Plt Count 201 MPV 9.2 L Immature Gran % (Auto) 0.5 H Neut % (Auto) 89.2 H Lymph % (Auto) 3.2 L [place] % (Auto) 6.8 Eos % (Auto) 0.1 Baso % (Auto) 0.2 Lymph # (Auto) 0.5 L [place] # (Auto) 1.1 Eos # (Auto) 0.0 Baso # (Auto) 0.0 Abs Immat Gran (auto) 0.08 H Absolute Neuts (auto) 15.0 H Absolute Nucleated RBC 0.000 Nucleated RBC % (auto) 0.0 Smear Tech's Comments VERIFIED PT 14.7 H INR 1.2 H APTT 36.3 Anion Gap Estim Creat Clear Calc Estimated GFR Random Glucose Lactic Acid Calcium Magnesium Total Bilirubin Direct Bilirubin AST ALT Alkaline Phosphatase Total Protein Albumin Lipase Urine Color YELLOW Urine Appearance CLOUDY Urine pH 6.5 Ur Specific [place] 1.010 Urine Protein 1+ H Urine Glucose (UA) NEG Urine Ketones NEG Urine Blood 3+ H Urine Nitrite POS H Ur Leukocyte Esterase 3+ H Urine RBC 1-4 Urine WBC 15-29 H Ur Squamous Epith Cells 4+ Urine Bacteria 3+ 08/07/20 08/07/20 08/07/20 17:58 17:58 17:58 MCV MCH MCHC RDW Plt Count MPV Immature Gran % (Auto) Neut % (Auto) Lymph % (Auto) [place] % (Auto) Eos % (Auto) Baso % (Auto) Lymph # (Auto) [place] # (Auto) Eos # (Auto) Baso # (Auto) Abs Immat Gran (auto) Absolute Neuts (auto) Absolute Nucleated RBC Nucleated RBC % (auto) Smear Tech's Comments PT INR APTT Anion Gap 12 Estim Creat Clear Calc 76.2 Estimated GFR > 60 Random Glucose 113 Lactic Acid 1.0 Calcium 8.9 Magnesium 1.8 Total Bilirubin 0.8 Direct Bilirubin 0.3 AST 24 ALT 13 Alkaline Phosphatase 50 Total Protein 6.6 Albumin 3.9 Lipase 32 Urine Color Urine Appearance Urine pH Ur Specific [place] Urine Protein Urine Glucose (UA) Urine Ketones Urine Blood Urine Nitrite Ur Leukocyte Esterase Urine RBC Urine WBC Ur Squamous Epith Cells Urine Bacteria Imaging Radiologist's Impressions: Impressions Abdomen/Pelvis CT 08/07/20 17:39 IMPRESSION: 1. Bilateral renal stones are redemonstrated with the largest measuring up to 0.4 cm on the left. No ureteral stone. No hydronephrosis or hydroureter. No significant perinephric stranding. 2. Partially distended urinary bladder with circumferential wall thickening. Findings may be due to underdistention. Early cystitis could be considered in the appropriate clinical setting. Assessment and Plan (1) UTI (urinary tract infection): Status: Acute 35-year-old female with a past medical history of renal stones, pyelonephritis presented to the hospital with a chief complaint of bilateral flank pain noted to have UTI. Admitted for further management. UTI: Continue ceftriaxone. Follow cultures. Will consult ID given recurrent episodes of UTI/pyelonephritis. Continue gentle IV fluids. History of renal stones: Noted again on the CT scan done in the ER. No evidence of hydronephrosis or ureteral stones. Recommended outpatient urology follow-up. DVT prophylaxis: SCD boots Per status: Full code
[2020-08-07] MEDS: cefTRIAXone sodium 1 GM in 0.9 % Sodium Chloride 50 ML IV (19:27)
[2020-08-07 20:00] VITALS: BP 100/57; PULSE 93; RESP 18; TEMP 37.4; O2SAT 100
[2020-08-07 20:07] VITALS: RESP 16
[2020-08-07 20:20] LABS: COVID-19 Test Negative (Negative); IDNOW Serial# 9DD0AD1C
--- NOTE | 2020-08-07 21:23 | PC.NURSE ---
nurse to nurse report given to Desirae MASCORRO
[2020-08-07 21:45] VITALS: RESP 18
[2020-08-07] MEDS: HYDROmorphone HCl 0.5 MG/0.5 ML SYRINGE IVPUSH (21:45)
[2020-08-07 21:51] VITALS: BMI 22.8
[2020-08-07] MEDS: 0.9 % Sodium Chloride 1,000 ML 100 ML IVCONT (23:05)
[2020-08-07 23:29] VITALS: BP 92/50; PULSE 98; RESP 18; TEMP 38.6; O2SAT 98
[2020-08-07] MEDS: Acetaminophen 325 MG TABLET 650 MG PO (23:42)
[2020-08-08] VITALS (11 sets, daily range): BP systolic 78–122; BP diastolic 48–80; PULSE 66–80; RESP 16–18; TEMP 36.5–37.9; O2SAT 96–100
[2020-08-08] MEDS: HYDROmorphone HCl 0.5 MG/0.5 ML SYRINGE IVPUSH ×4 (01:16→19:42)
--- NOTE | 2020-08-08 03:25 | PC.NURSE ---
Manual bp 86/50. Pt asymptomatic, all other vitals stable, NS running at 100 ml/hr. Dr Wilson notified. To monitor for now, will recheck bp.
[2020-08-08] MEDS: Ibuprofen 400 MG TABLET PO (04:51)
[2020-08-08] MEDS: 0.9 % Sodium Chloride 500 ML IV (04:52)
[2020-08-08 04:58] LABS: MANUAL DIFF FLAG NO
[2020-08-08 05:02] LABS: Basophils Percent Auto 0.2 % (0-2); Hematocrit 29.9 % (37-47); Hemoglobin 9.8 g/dl (12.0-16.0); Imm Gran Abs Auto 0.11 X10*3/uL (0.00-0.03); Imm Gran Pct Auto 0.7 % (0.0-0.4); Lymphocytes Absolute Auto 1.1 X10*3/uL (1.2-4.9); Lymphocytes Percent Auto 6.5 % (20-40); Mean Corpuscular HGB Conc 32.8 g/dl (31.0-35.0); Mean Corpuscular Hemoglobin 33.4 pg (27.0-33.0); Mean Platelet Volume 9.5 fL (9.4-12.3); Monocytes Absolute Auto 1.2 X10*3/uL (0.1-1.2); Monocytes Percent Auto 7.1 % (2-11); Neutrophils Absolute Auto 14.4 X10*3/uL (2.0-8.3); Neutrophils Percent Auto 85.5 % (45-73); Platelet Count 156 X10*3/uL (160-400); Red Blood Count 2.93 X10*6/uL (4.20-5.50); Red Cell Distribution Width 12.6 % (11.0-16.0); White Blood Count 16.8 X10*3/uL (4.8-10.8)
[2020-08-08 05:14] LABS: Lactic Acid 0.7 mmol/L (0.5-2.0)
[2020-08-08 05:28] LABS: Anion Gap 10 (12-20); Blood Urea Nitrogen 13 mg/dL (9-16); Calcium 7.7 mg/dL (8.4-10.2); Carbon Dioxide 22 mmol/L (22-29); Chloride 109 mmol/L (96-108); Creatinine Clr Calc Pharmacy 77.2; Estimated Glomerular Filt Rate > 60; Glucose Random 107 mg/dL (60-115); Magnesium 1.6 mg/dL (1.6-2.6); Potassium 3.6 mmol/L (3.3-5.1); Sodium 137 mmol/L (135-145)
[2020-08-08] MEDS: Acetaminophen 325 MG TABLET 650 MG PO (05:52)
[2020-08-08] MEDS: ondansetron HCL 4 MG/2 ML VIAL IVPUSH (08:11)
[2020-08-08] MEDS: 0.9 % Sodium Chloride 1,000 ML 100 ML IVCONT ×2 (08:18→19:32)
--- NOTE | 2020-08-08 12:04 | HO.PM.IMPN ---
Subjective Subjective Date of Service: 08/08/20 Interval History: c/o persistent nausea and vomitting andhad fever this morning Review of Systems Gen: + fever Resp: no sob, no cough CV: no chest, no NIELSON, no leg edema GI:+ n/v, no abd pain Neuro: No confusion Physical Exam Vital Signs: Vital Signs: Last Vital Signs Temp 98.4 F 08/08/20 10:54 Pulse 66 08/08/20 10:54 Resp 18 08/08/20 10:54 BP 108/65 08/08/20 10:54 Pulse Ox 100 08/08/20 10:54 Body Mass Index 22.8 Const: Other: General: AO X 3, no acute distress Resp: CTA bilateral CVS: S1,S2,RRR GI: +BS, NT, no distention Skin: No rash Neuro: motor grossly intact Psych: appropriate affect Objective Data Current Medications Generic Name Dose Route Start Last Admin Trade Name Freq PRN Reason Stop Dose Admin Acetaminophen 650 mg 08/07/20 23:34 08/08/20 05:52 Acetaminophen 325 Mg Tablet PO 650 mg Q6H PRN Administration pain/fever Hydromorphone HCl 0.5 mg 08/07/20 21:18 08/08/20 08:11 Hydromorphone Hcl 0.5 Mg/0.5 Ml Syringe IVPUSH 0.5 mg Q6H PRN Administration Breakthrough Pain Sodium Chloride 1,000 mls @ 100 mls/hr 08/07/20 19:30 08/08/20 08:18 Ns IVCONT 100 mls/hr .Q10H BARON Administration Ceftriaxone Sodium 1 gm/ 50 mls @ 100 mls/hr 08/08/20 20:00 Sodium Chloride IV Q24H BARON Promethazine HCl 12.5 mg/ 50.5 mls @ 202 mls/hr 08/08/20 10:08 08/08/20 11:32 Sodium Chloride IV Infused Q6H PRN Infusion Vomiting Ondansetron HCl 4 mg 08/07/20 21:58 08/08/20 08:11 Ondansetron Hcl 4 Mg/2 Ml Vial IVPUSH 4 mg Q8H PRN Administration Nausea and Vomiting Sodium Chloride 3 ml 08/08/20 00:00 08/08/20 08:21 0.9 % Sodium Chloride Flush 3 Ml Syringe IVFLUSH Not Given QSHIFT BARON Labs CBC & Chem 7: 08/08/20 04:50 08/08/20 04:50 Assessment and Plan (1) UTI (urinary tract infection): Status: Acute Assessment and Plan: 35-year-old female with a past medical history of renal stones, pyelonephritis presented to the hospital with a chief complaint of bilateral flank pain noted to have UTI. Admitted for further management. UTI/Acute Pyelenephritis--persitent fever and increase in WBC culture pending.. Continue Continue ceftriaxone. Follow cultures. Will consult ID given recurrent episodes of UTI/pyelonephritis. N/V d/t abve, hydrate, Zofran and Phenergan for control History of renal stones: Noted again on the CT scan done in the ER. No evidence of hydronephrosis or ureteral stones. Recommended outpatient urology follow-up. DVT prophylaxis: SCD boots Per status: Full code
--- NOTE | 2020-08-08 13:37 | W.PM.IDCN ---
History of Present Illness Data of Consult Service Date: 08/08/20 Requesting physician: Henrry Loaiza Primary Care Provider: Michelle Wong MD [facility] Reason for consult: sepsis,urinary She presents to hospital with complaints of left flank pain 8/10 as well as perineal discomfort She had tachycardia and temperature to 101.5 She has had recurrent pyelonephritis concerns on CT and kidney stones Review of Systems Review of Systems: Yes all other systems are reviewed and are negative PMFSH Past Medical History Medical History Kidney stones Migraine headache Pyelonephritis Family History Family history: reviewed and not pertinent Surgical History Surgical History H/O tubal ligation Social History Social History Household Members: Children Housing: House Alcohol intake: never Patient Tobacco Use Status: Current everyday Tobacco user Tobacco use type: Cigarette Cigarettes Per Day: 2 Smoked in Last 30 Days: Yes Patient Interested in Nicotine Replacement: No Use of substances other than those prescribed or required for medical reasons: No Currently Displaying Signs/Symptoms of Drug Intoxication Withdrawal: No Have you been hit, kicked, punched, or otherwise hurt by someone within the past year? If so, by whom?: No Do you feel safe in your current relationship?: Yes Is there a partner from a previous relationship who is making you feel unsafe now?: No Are you made to feel afraid or neglected: No Advance Directives: No Advance Directives Information Provided: No Do you have thoughts of harming others: None Do you have a plan to hurt others: No Plan Recently lost weight without trying: No Nutrition Risks: No Nutritional Risk Patient : No : No Poor oral hygiene: No Meds Allergies Allergy/AdvReac Type Severity Reaction Status Date / Time ethinyl estradiol [NuvaRing] Allergy Unknown yeast Verified 08/07/20 17:26 infection etonogestrel [NuvaRing] Allergy Unknown yeast Verified 08/07/20 17:26 infection medroxyprogesterone Allergy Unknown facial acne Verified 08/07/20 17:26 [Depo-Provera] No Known Allergies Allergy Verified 08/07/20 17:26 Active Medications: Current Medications Generic Name Dose Route Start Last Admin Trade Name Freq PRN Reason Stop Dose Admin Acetaminophen 650 mg 08/07/20 23:34 08/08/20 05:52 Acetaminophen 325 Mg Tablet PO 650 mg Q6H PRN Administration pain/fever Hydromorphone HCl 0.5 mg 08/07/20 21:18 08/08/20 08:11 Hydromorphone Hcl 0.5 Mg/0.5 Ml Syringe IVPUSH 0.5 mg Q6H PRN Administration Breakthrough Pain Sodium Chloride 1,000 mls @ 100 mls/hr 08/07/20 19:30 08/08/20 08:18 Ns IVCONT 100 mls/hr .Q10H BARON Administration Ceftriaxone Sodium 1 gm/ 50 mls @ 100 mls/hr 08/08/20 20:00 Sodium Chloride IV Q24H BARON Promethazine HCl 12.5 mg/ 50.5 mls @ 202 mls/hr 08/08/20 10:08 08/08/20 11:32 Sodium Chloride IV Infused Q6H PRN Infusion Vomiting Ondansetron HCl 4 mg 08/07/20 21:58 08/08/20 08:11 Ondansetron Hcl 4 Mg/2 Ml Vial IVPUSH 4 mg Q8H PRN Administration Nausea and Vomiting Sodium Chloride 3 ml 08/08/20 00:00 08/08/20 08:21 0.9 % Sodium Chloride Flush 3 Ml Syringe IVFLUSH Not Given QSHIFT [facility] Physical Exam Vital Signs: Vital Signs: Last Vital Signs Temp 98.4 F 08/08/20 10:54 Pulse 66 08/08/20 10:54 Resp 18 08/08/20 10:54 BP 108/65 08/08/20 10:54 Pulse Ox 100 08/08/20 10:54 Body Mass Index 22.8 Const: General: cooperative HENMT: Head: Yes normal to inspection Mouth: Normal oral and palatal mucosa present Resp: Effort & Inspection: normal respiratory effort Cardio: Rate: regular rate Rhythm: regular rhythm GI: Palpation (GI): Soft to palpation and nontender : Other: left CVA pain Results Labs CBC & Chem 7: 08/08/20 04:50 08/08/20 04:50 Labs: Short CBC 08/07/20 08/08/20 Range/Units 17:58 04:50 WBC 16.8 H 16.8 H (4.8-10.8) X10*3/uL Hgb 11.4 L 9.8 L (12.0-16.0) g/dl Hct 33.8 L 29.9 L (37-47) % Plt Count 201 156 L (160-400) X10*3/uL BMP 08/07/20 08/08/20 17:58 04:50 Sodium 136 137 Potassium 4.3 3.6 Chloride 103 109 H Carbon Dioxide 25 22 BUN 18 H 13 Creatinine 0.77 0.76 Calcium 8.9 7.7 L D Liver Function 08/07/20 Range/Units 17:58 Total Bilirubin 0.8 (0.0-1.0) mg/dL Direct Bilirubin 0.3 (0.0-0.5) mg/dL AST 24 (5-31) U/L ALT 13 (0-31) U/L Alkaline Phosphatase 50 (39-117) U/L Albumin 3.9 (3.5-5.0) g/dL Urine 08/07/20 Range/Units 17:33 Urine Color YELLOW Urine Appearance CLOUDY Urine pH 6.5 (5.0-8.0) Ur Specific [place] 1.010 (1.005-1.025) Urine Protein 1+ H (NEG-TRACE) MG/DL Urine Glucose (UA) NEG (NEG) MG/DL Assessment and Plan (1) Sepsis: Qualifiers: Sepsis acute organ dysfunction status: without acute organ dysfunction Sepsis type: sepsis due to unspecified organism Qualified Code(s): A41.9 - Sepsis, unspecified organism Status: Acute This is possible Klebsiella or Proteus or other gram negative organisms Continue Ceftriaxone Await cultures Po Ceftin 500 mg po bid if sensitive See Urology while here (2) Kidney stone: Status: Acute
--- NOTE | 2020-08-08 15:07 | MHC.CM.PN ---
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 PT CONFIRMS HER PCP IS EBER ANDERSON. PT DOES NOT HAVE A HCP AND DECLINED TO COMPLETE ONE DURING HER ADMISSION. CURRENT DC PLAN IS HOME WITH NO SERVICES PT WILL DRIVE HERSELF HOME
[2020-08-08] MEDS: 0.9 % Sodium Chloride Flush 3 ML SYRINGE IVFLUSH (16:58)
[2020-08-08] MEDS: cefTRIAXone sodium 1 GM in 0.9 % Sodium Chloride 50 ML IV (19:32)
[2020-08-09] VITALS: BP 101/59; PULSE 97; RESP 18; TEMP 38.7; O2SAT 97
[2020-08-09] MEDS: Acetaminophen 325 MG TABLET 650 MG PO (00:09)
[2020-08-09 01:45] VITALS: RESP 18; TEMP 37.2
[2020-08-09] MEDS: HYDROmorphone HCl 0.5 MG/0.5 ML SYRINGE IVPUSH (01:45)
[2020-08-09 01:47] VITALS: TEMP 37.2
[2020-08-09 02:56] VITALS: RESP 18
[2020-08-09 04:00] VITALS: BP 93/63; PULSE 74; RESP 18; TEMP 36.8; O2SAT 98
[2020-08-09] MEDS: 0.9 % Sodium Chloride 1,000 ML 100 ML IVCONT (05:51)
[2020-08-09 06:44] VITALS: BP 99/70; PULSE 60; RESP 20; TEMP 36.6; O2SAT 99
--- NOTE | 2020-08-09 14:57 | PM.DS ---
DS: Providers Provider Date of Service: 08/09/20 Date of admission: 08/07/20 19:20 Primary care physician: Michelle Wong MD Consults: 08/07/20 19:20 Consult to Infectious Diseases Routine Consulting Provider: Kelly Aquino Reason for consultation: rec uti/pyelonephritis DS: Diagnosis Discharge Diagnosis (1) Sepsis: Status: Acute (2) Kidney stone: Status: Acute DS: Medications Discharge Medications Home Medications: Previous Rx's Medication Instructions Recorded cefuroxime axetil 500 mg PO BID 7 Days #14 tab 03/03/20 ibuprofen 800 mg PO Q8H PRN #30 tab 03/03/20 sulfamethoxazole-trimethoprim 1 tab PO Q12H 7 Days #14 tab 03/03/20 [Bactrim DS] sulfamethoxazole-trimethoprim 1 tab PO Q12H #14 tab 03/04/20 [Bactrim DS] cefuroxime axetil 500 mg PO Q12H #14 tab 08/09/20 DS: Summary Hospital Course Hospital Course: Patient was been treated for acute pyelonephritis, sepsis and early this morning decided to leave against medical advise, took out her own IV and left before I could be informed to come see her. I tried to reach her by Phone but din't get through. I sent prescription of Ceftin to the pharmacy for her in hope that pharmacy will reach her, I will aslo try again. I was told she said was going to see her own doctor. Time Spent with Patient Time attestation: Total time spent providing and/or coordinating discharge services: Discharge coordination time: Greater than 30 minutes Quality: Stroke Does the patient have a stroke diagnosis?: No Physical Exam Vital Signs: Vital Signs: Last Vital Signs Temp 97.8 F 08/09/20 06:44 Pulse 60 08/09/20 06:44 Resp 20 08/09/20 06:44 BP 99/70 08/09/20 06:44 Pulse Ox 99 08/09/20 06:44 Body Mass Index 22.8 DS: Data Data Completed and Pending Labs on day of discharge: Preliminary micro results at discharge 08/07/20 17:33 Urine Culture - Preliminary Urine clean catch - Clean Catch Midstream Gram negative modesta 08/07/20 19:11 Blood Culture - Preliminary Blood - Venous No growth after 24 hours. 08/07/20 19:07 Blood Culture - Preliminary Blood - Venous No growth after 24 hours. Discharge Plan Discharge Anticipated Discharge Date/Time: 08/09/20 14:57 Patient Disposition: Left Against Medical Advice Discharge Diagnosis: UTI Referrals: Michelle Wong MD [Primary Care Provider] - 1 Week Discharge Medications: Continued cefuroxime axetil 500 mg tablet 500 mg PO BID 7 Days Qty: 14 RF: 0 sulfamethoxazole-trimethoprim [Bactrim DS] 800-160 mg tablet 1 tab PO Q12H 7 Days Qty: 14 RF: 0 ibuprofen 800 mg tablet 800 mg PO Q8H PRN (Reason: pain) Qty: 30 RF: 0 sulfamethoxazole-trimethoprim [Bactrim DS] 800-160 mg tablet 1 tab PO Q12H Qty: 14 RF: 0 cefuroxime axetil 500 mg tablet 500 mg PO Q12H Qty: 14 RF: 0 Discharge Orders: Discharge Order (Routine); Ordered 08/09/20 Ordered By: Henrry Loaiza Care Plan Goals: left against medical advice Health Concerns: againts medicala advice Plan of Treatment: take antibiotics as recommended and follow up with your docotor in a week Assessment: See above Discharge Date/Time: 08/09/20 08:34
--- NOTE | 2020-08-09 14:59 | MHC.CM.PN ---
pt left ama
== END 2020-08-09 08:34 | disposition left against medical advice (07) | DRG 720 ==
LOC: HO.ED 19:36 → HO.IMC 20:32
PROVIDERS: Nurse Practitioner Family; Admitting Provider Hospitalist; Emergency Provider Internal Medicine; PCP Internal Medicine; Visit Provider Internal Medicine
DX: A41.9 Sepsis, unspecified organism (principal); N10 Acute pyelonephritis; G43.909 Migraine, unspecified, not intractable, without status migrainosus; Z20.822 Contact with and (suspected) exposure to COVID-19; Z87.442 Personal history of urinary calculi
CPT/HCPCS: 36415; 74176; 80048; 80076; 81001; 83605; 83690; 83735; 85025; 85610; 85730; 87040; 87086; 87088; 87186; 87635; 96365; 96375; 99285; 99291; J0696; J1170; J1885; J2270; J2405; J2550

== ENCOUNTER → 2020-08-12 10:23 | Outpatient (BNVA) | payer OTHER, SELFPAY | PROVIDERS: PCP Internal Medicine | DX: N30.01 Acute cystitis with hematuria (principal); A41.9 Sepsis, unspecified organism | CPT/HCPCS: 99212 ==

== ENCOUNTER 2020-09-05 11:14 | Day surgery (SDC) | payer OTHER, SELFPAY ==
[2020-08-30 09:56] VITALS: BMI 25.3
--- NOTE | ~2020-09-05 | FL_ITS ---
EXAMINATION: XR FLUOROSCOPY WITH IMAGES CLINICAL INFORMATION: Left retrograde. COMPARISON: None. TECHNIQUE: Fluoroscopy performed by Dr. Sanket Bedoya. Fluoroscopy time: 22.4 seconds. DAP: 2.74 mGycm2 Images: 4 FINDINGS: There is contrast opacifying left kidney pelvis or the ureteroscope extending to the left renal pelvis. The last images reveal a left ureteral stent in place. Fluoroscopy was provided during the exam. FL/FL guidance in OR IMPRESSION: Fluoroscopy was provided to the referring physician during left retrograde ureteral evaluation.
[2020-09-05 11:44] VITALS: BP 98/62; PULSE 60; RESP 16; TEMP 36.6; O2SAT 99
[2020-09-05] MEDS: levoFLOXacin 500 MG TABLET PO (11:52)
--- NOTE | 2020-09-05 13:46 | MHC.SHP ---
Pre-Procedural Eval Section A Date of Service: 09/05/20 The patient is an INPATIENT: No Changes since office visit: No Cold of Flu in the past 2 weeks, No New Medical Problems, No Changes in Medication and No Patient answered all questions The History & Physical has been completed within 30 days and I have reviewed it.: Yes Section B Chief Complaint: kidney stone Allergies: Allergies Allergy/AdvReac Type Severity Reaction Status Date / Time ethinyl estradiol [NuvaRing] Allergy Intermediate yeast Verified 08/30/20 09:55 infection etonogestrel [NuvaRing] Allergy Intermediate yeast Verified 08/30/20 09:55 infection medroxyprogesterone AdvReac Intermediate facial acne Verified 08/30/20 09:55 [Depo-Provera] Plan Diagnosis/Plan: Unchanged ( right retrograde, ureteroscopy, laser lithotripsy stent) I have reviewed the history and physical and performed a pertinent physical examination on my patient. No changes have occurred unless specified.
--- NOTE | 2020-09-05 14:14 | HO.ANESPROP2 ---
[facility] Active Problems Active Problems: All Active Problems (Updated 08/30/20 @ 09:55 by Shaniqua Abreu) UTI (urinary tract infection) (Acute) Migraine headache (Acute) Past Medical History Medical History Kidney stones Migraine headache Pyelonephritis Surgical History Surgical History H/O tubal ligation Hx of dilation and curettage Hx of dilation and curettage Social History Social History Household Members: Children Housing: House Alcohol intake: never Patient Tobacco Use Status: Current everyday Tobacco user Tobacco use type: Cigarette Cigarettes Per Day: 2 Advance Directives Information Provided: No service: No Current occupational status: employed Meds Allergies Allergy/AdvReac Type Severity Reaction Status Date / Time ethinyl estradiol [NuvaRing] Allergy Intermediate yeast Verified 08/30/20 09:55 infection etonogestrel [NuvaRing] Allergy Intermediate yeast Verified 08/30/20 09:55 infection medroxyprogesterone AdvReac Intermediate facial acne Verified 08/30/20 09:55 [Depo-Provera] Home Medications Medication Instructions Recorded Confirmed Last Taken Type fluticasone propionate 50 1 spray INTRANASAL DAILY 08/12/20 08/30/20 Unknown History mcg/actuation nasal spray,suspension ketotifen fumarate 0.025 % (0.035 drp OPHTHALMIC (EYE) 08/12/20 Unknown History %) eye drops Exam Exam Date and Time: September 05, 2020 1414 Height,Weight and Vital Signs: Height 5 ft 1 in Weight 60.781 kg Last Vital Signs Temp 97.8 F 09/05/20 11:44 Pulse 60 09/05/20 11:44 Resp 16 09/05/20 11:44 BP 98/62 09/05/20 11:44 Pulse Ox 99 09/05/20 11:44 Airway Mallampati Class: I TM Dist: >3cm Neck ROM: Full Assessment and Plan Assessment Anesthesia Assessment: Anesthesia Plan Discussed and Chart Reviewed Final Anesthetic Review NPO: Yes ASA Class: II Final Preanesthetic Review: No Changes in Pt Med Stat, Meds/Allgs Chart Reviewed, Consent Obtained/Reviewed and Anes Risks/Benef Reviewed Patient Risk: Low Procedure Risk: Low Assessment/Block/Sedation in SS: Assess/Block/Sedation-SS Anesthetic Plan Anesthetic Plan: GA Disposition: Standard PACU
[2020-09-05 14:35] VITALS: BP 100/65; PULSE 54; RESP 16; TEMP 36.2; O2SAT 100
[2020-09-05 14:40] VITALS: BP 109/61; PULSE 65; RESP 16; O2SAT 99
[2020-09-05 14:45] VITALS: BP 111/71; PULSE 60; RESP 16; O2SAT 99
--- NOTE | 2020-09-05 14:45 | W.PM.OPN ---
Operative Note Operative Note Date of Service: 09/05/20 Narrative: PreOperative Diagnosis: Left renal stones Post Operative Diagnosis: left renal stones Procedure: - left cystoscopy, retrograde - left dilatation of ureteric orifice under fluoroscopy - left ureteroscopy, laser lithotripsy - left stent placement Surgeon: Dr Aureliano Coles Anesthesia: General Indications for procedure: this is a 35-year-old female. Recurrent stone former. Imaging with stones in the left kidney. Suffer from pyelonephritis. Here for removal of left kidney stones with ureteroscopy, laser lithotripsy and stent placement. Procedure: After informed consent was verified patient was brought to the operating placed in supine position. Anesthesia was administered per protocol. Patient was placed in modified dorsal lithotomy position and prepped and draped in a sterile fashion. Safety pause time-out and side of surgery confirmed. Antibiotics confirmed. Twenty-two German cystoscope inserted per urethra. Urethra normal. Both ureteric orifices normal position. Normal bladder. Open-ended catheter inserted into left ureteric orifice. Retrograde examination was performed. Delicate filling seen with minimal issue of filling defect. Sensor guidewire placed without difficulty. Cystoscope removed. Left ureteric orifice dilated under fluoroscopy using internal cannula from a ureteric access sheath. Ureteric access sheath placed. Flexible ureteroscopy performed. There was 6 calices. In 3 of the calices there were stones that were adherent to the apex of the papilla. In each of these calices the stone was broken into small pieces. In 1 of the calices there were 2 stones sitting on the papilla. In the same calices there were also submucosal calcifications in deposition. In the superior calyx there was a partial emergence of a stone from the mucosa and this was broken into small pieces with the laser. The stone pieces were all too small to fit in a Zero tip basket. Decision was made to remove the ureteral scope and the access sheath after replacement with a Sensor guidewire. A 6 German by 22 cm double-J stent was then placed without difficulty. Bladder was emptied in its entirety. She tolerated the procedure well was extubated in the operating room transferred in stable condition to the recovery area. Pathology: None Drains: 6 German by 22 cm double-J stent
[2020-09-05] MEDS: Phenazopyridine HCL 100 MG TABLET PO (14:48)
[2020-09-05 14:50] VITALS: BP 114/70; PULSE 69; RESP 16; O2SAT 100
[2020-09-05 15:05] VITALS: BP 111/69; PULSE 60; RESP 16; TEMP 36.2; O2SAT 100
== END 2020-09-05 15:18 | disposition home or self-care (01) ==
PROVIDERS: PCP Internal Medicine; Visit Provider Urology
PROC: (CPT 52356; principal; 2020-09-05 13:50)
DX: N20.0 Calculus of kidney (principal); Z87.442 Personal history of urinary calculi; Z87.440 Personal history of urinary (tract) infections; Z79.1 Long term (current) use of non-steroidal anti-inflammatories (NSAID); Z79.899 Other long term (current) drug therapy; Z88.8 Allergy status to other drugs, medicaments and biological substances; F17.210 Nicotine dependence, cigarettes, uncomplicated
CPT/HCPCS: 52356; C1769; C1894; C2617; J1100; J1885; J2250; J2405; J3010; Q9967

== ENCOUNTER → 2020-09-14 15:05 | Outpatient (BNVA) | payer OTHER, SELFPAY | PROVIDERS: PCP Internal Medicine; Visit Provider Urology | DX: N20.0 Calculus of kidney (principal); F17.210 Nicotine dependence, cigarettes, uncomplicated | CPT/HCPCS: 52310; 99212 ==

== ENCOUNTER 2020-10-18 14:02 | Outpatient (REF) | payer OTHER, SELFPAY ==
--- NOTE | ~2020-10-18 | US_ITS ---
EXAMINATION: US RETROPERITONEAL LIMITED (RENAL ONLY) CLINICAL INFORMATION: Calculus of kidney. COMPARISON: CT abdomen and pelvis without contrast dated 08/07/2020. Ultrasound abdomen limited dated 12/19/2012. KUB dated 08/24/2010. TECHNIQUE: Real-time imaging of the kidneys. FINDINGS: RIGHT KIDNEY: 11.1 x 3.4 x 4.9 cm (SAG x AP x TRV). The kidney is normal in size, contour, and echogenicity. Renal cortical thickness is normal. No focal parenchymal lesions or hydronephrosis. There are nonobstructive echogenic stones, midpole 0.3 x 0.2 x 0.2 cm and upper pole measuring 0.2 x 0.3 x 0.2 cm. LEFT KIDNEY: 11.0 x 4.3 x 4.5 cm (SAG x AP x TRV). The kidney is normal in size, contour, and echogenicity. Renal cortical thickness is normal. No focal parenchymal lesions or hydronephrosis. There is nonobstructive echogenic stone lower pole measuring 0.3 x 0.3 x 0.2 cm US/US renal BI IMPRESSION: Bilateral nonobstructive echogenic renal calculi. No hydronephrosis.
== END 2020-10-18 14:03 | disposition home or self-care (01) ==
LOC: HO.HMGCX 14:02
PROVIDERS: PCP Internal Medicine; Visit Provider Urology
DX: N20.0 Calculus of kidney (principal)
CPT/HCPCS: 76775

== ENCOUNTER → 2020-10-19 14:04 | Outpatient (BNVA) | payer OTHER, SELFPAY | PROVIDERS: PCP Internal Medicine; Visit Provider Urology | DX: N20.0 Calculus of kidney (principal); N30.01 Acute cystitis with hematuria | CPT/HCPCS: 99212 ==

== ENCOUNTER 2020-11-11 15:13 | Emergency (ER) | payer OTHER, SELFPAY ==
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
[2020-11-11 15:16] VITALS: BP 105/66; PULSE 65; RESP 18; TEMP 36.6; O2SAT 100; BMI 22.2
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
[2020-11-11 17:07] VITALS: BP 104/69; PULSE 68; RESP 18; TEMP 36.6; O2SAT 100
== END 2020-11-11 17:19 | disposition home or self-care (01) ==
PROVIDERS: Emergency Provider Emergency Medicine; PCP Internal Medicine
DX: K04.7 Periapical abscess without sinus (principal); F17.210 Nicotine dependence, cigarettes, uncomplicated; Z71.6 Tobacco abuse counseling; Z79.899 Other long term (current) drug therapy
CPT/HCPCS: 70486; 99284

== ENCOUNTER 2021-02-27 11:53 | Emergency (ER) | payer OTHER, SELFPAY | END 2021-02-27 16:00 | disposition left against medical advice (07) | PROVIDERS: Emergency Provider Emergency Medicine; PCP Internal Medicine | DX: R07.9 Chest pain, unspecified (principal) ==

== ENCOUNTER 2021-02-28 14:18 | Outpatient (REF) | payer OTHER, SELFPAY ==
--- NOTE | ~2021-02-28 | XR_ITS ---
EXAMINATION: XR CHEST CLINICAL INFORMATION: Esophageal reflux COMPARISON: Chest radiograph from 03/03/2020 TECHNIQUE: 2 views of the chest were obtained. FINDINGS: No focal consolidation. No pneumothorax. Trachea is midline. Cardiomediastinal silhouette is not enlarged. No large pleural effusion. Osseous structures are intact. Bilateral nipple piercings are noted. Soft tissues are otherwise unremarkable. XR/XR chest 2V IMPRESSION: No acute cardiopulmonary process.
[2021-02-28 14:34] LABS: MANUAL DIFF FLAG NO
[2021-02-28 14:43] LABS: Basophils Percent Auto 0.6 % (0-2); Eosinophils Absolute Auto 0.1 X10*3/uL (0.0-0.4); Eosinophils Percent Auto 2.7 % (0-4); Hematocrit 32.7 % (37.0-47.0); Hemoglobin 10.4 g/dl (12.0-16.0); Imm Gran Abs Auto 0.01 X10*3/uL (0.00-0.03); Imm Gran Pct Auto 0.2 % (0.0-0.4); Lymphocytes Absolute Auto 1.3 X10*3/uL (1.2-4.9); Lymphocytes Percent Auto 27.9 % (20-40); Mean Corpuscular HGB Conc 31.8 g/dl (31.0-35.0); Mean Corpuscular Hemoglobin 33.1 pg (27.0-33.0); Mean Corpuscular Volume 104.1 fL (80.0-98.0); Mean Platelet Volume 9.7 fL (9.4-12.3); Monocytes Absolute Auto 0.6 X10*3/uL (0.1-1.2); Monocytes Percent Auto 11.4 % (2-11); Neutrophils Absolute Auto 2.8 x10*3/uL (2.0-8.3); Neutrophils Percent Auto 57.2 % (45-73); Platelet Count 209 X10*3/uL (160-400); Red Blood Count 3.14 X10*6/uL (4.20-5.50); Red Cell Distribution Width 12.3 % (11.0-16.0); White Blood Count 4.8 X10*3/uL (4.8-10.8)
[2021-02-28 15:15] LABS: Alanine Aminotransferase 14 U/L (0-31); Albumin Level 3.8 g/dL (3.5-5.0); Alkaline Phosphatase 45 U/L (39-117); Amylase 83 U/L (28-100); Anion Gap 7 (12-20); Aspartate Amino Transferase 17 U/L (5-31); Bilirubin Total 0.4 mg/dL (0.0-1.0); Blood Urea Nitrogen 19 mg/dL (9-16); Calcium 9.5 mg/dL (8.4-10.2); Carbon Dioxide 29 mmol/L (22-29); Chloride 109 mmol/L (96-108); Estimated Glomerular Filt Rate > 60; Glucose Random 82 mg/dL (60-115); Lipase 26 U/L (8-78); Potassium 4.3 mmol/L (3.3-5.1); Sodium 141 mmol/L (135-145); Total Protein 6.3 g/dL (6.5-8.0)
[2021-02-28 15:30] LABS: Erythrocyte Sedimentation Rate 13 MM/HR (0-20)
== END 2021-02-28 14:19 | disposition home or self-care (01) ==
LOC: HO.XRAY 14:18
PROVIDERS: PCP Internal Medicine; Visit Provider Internal Medicine Medical Oncology
DX: K21.9 Gastro-esophageal reflux disease without esophagitis (principal)
CPT/HCPCS: 36415; 71046; 80053; 82150; 83690; 85025; 85652

== ENCOUNTER 2021-03-09 12:34 | Emergency (ER) | payer OTHER, SELFPAY ==
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
[2021-03-09 12:49] VITALS: BP 113/69; PULSE 76; RESP 19; TEMP 36.6; O2SAT 100; BMI 22.6
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
[2021-03-09 16:08] VITALS: BP 106/75; PULSE 60; RESP 18; TEMP 36.7; O2SAT 99
[2021-03-09] MEDS: oxyCODONE HCl Immed Release 5 MG TABLET PO (17:13)
== END 2021-03-09 17:13 | disposition home or self-care (01) ==
LOC: HO.ED 16:20
PROVIDERS: Emergency Provider Emergency Medicine; PCP Internal Medicine
DX: S22.32XA Fracture of one rib, left side, initial encounter for closed fracture (principal); R07.81 Pleurodynia; F17.210 Nicotine dependence, cigarettes, uncomplicated; W10.9XXA Fall (on) (from) unspecified stairs and steps, initial encounter; Y93.9 Activity, unspecified; Y92.9 Unspecified place or not applicable; Y99.9 Unspecified external cause status; Z79.899 Other long term (current) drug therapy; Z71.6 Tobacco abuse counseling
CPT/HCPCS: 71101; 99283; 99284

== ENCOUNTER 2021-03-16 11:38 | Outpatient (REF) | payer OTHER, SELFPAY ==
--- NOTE | ~2021-03-16 | US_ITS ---
EXAMINATION: US RETROPERITONEAL LIMITED (RENAL ONLY) CLINICAL INFORMATION: Calculus of kidney. COMPARISON: Renal ultrasound 10/18/2020. CT abdomen and pelvis 08/07/2020. Limited abdominal ultrasound 12/19/2012. X-ray abdomen KUB 08/24/2010. TECHNIQUE: Real-time imaging of the kidneys. FINDINGS: RIGHT KIDNEY: 11.5 x 3.1 x 4.1 cm (SAG x AP x TRV). The kidney is normal in size, contour, and echogenicity. Renal cortical thickness is normal. 3 mm nonobstructing mid pole calculus. No hydronephrosis. LEFT KIDNEY: 10.0 x 4.5 x 4.7 cm (SAG x AP x TRV). The kidney is normal in size, contour, and echogenicity. Renal cortical thickness is normal. 5 mm nonobstructing lower pole calculus. No hydronephrosis. US/US renal BI IMPRESSION: Bilateral subcentimeter nonobstructing renal calculi again identified. There is no hydronephrosis of either kidney.
== END 2021-03-16 11:39 | disposition home or self-care (01) ==
LOC: HO.US 11:38
PROVIDERS: Visit Provider Urology
DX: N20.0 Calculus of kidney (principal)
CPT/HCPCS: 76775

== ENCOUNTER → 2021-04-20 12:57 | Outpatient (BNVA) | payer OTHER, SELFPAY | PROVIDERS: PCP Internal Medicine; Visit Provider Urology ==

== ENCOUNTER 2021-07-30 23:57 | Emergency (ER) | payer OTHER, SELFPAY ==
[2021-07-31 00:08] VITALS: BP 125/80; PULSE 74; RESP 15; TEMP 36.9; O2SAT 100; BMI 25.4
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
[2021-07-31] MEDS: Fluorescein Sodium STRIP 1 STRIP EYE-RIGHT (01:19)
[2021-07-31] MEDS: Tobramycin Sulfate 0.3% Sol Op 5 ML BTL 2 DROP EYE-RIGHT (01:19)
[2021-07-31] MEDS: Tetracaine HCl/PF 0.5% Oph Sol 4 ML DROPS 1 DROP EYE-RIGHT (01:19)
== END 2021-07-31 01:26 | disposition home or self-care (01) ==
PROVIDERS: Emergency Provider Internal Medicine; PCP Internal Medicine
DX: S05.8X1A Other injuries of right eye and orbit, initial encounter (principal); W20.8XXA Other cause of strike by thrown, projected or falling object, initial encounter; Y93.H2 Activity, gardening and landscaping; Y92.017 Garden or yard in single-family (private) house as the place of occurrence of the external cause; Y99.8 Other external cause status
CPT/HCPCS: 99283

== ENCOUNTER 2021-08-01 09:58 | Outpatient (REF) | payer OTHER, SELFPAY ==
[2021-08-01 10:40] LABS: Appearance Urine HAZY; Color Urine YELLOW; Glucose Urine UA NEG (NEG); Leukocyte Esterase Urine 1+ (NEG); Nitrite Urine POS (NEG); Specific Gravity - Urine >= 1.030 (1.005-1.025); Urine Blood 3+ (NEG); Urine Ketones NEG (NEG); Urine Protein NEG (NEG-TRACE)
[2021-08-01 10:58] LABS: WBC Urine 50-75 /HPF (0-4)
[2021-08-01 10:59] LABS: Bacteria Urine 3+ /LPF; Squamous Epithelial Cell Urine 2+ /LPF
== END 2021-08-01 09:59 | disposition home or self-care (01) ==
LOC: HO.LAB 09:58
PROVIDERS: PCP Internal Medicine; Visit Provider Urology
DX: N30.01 Acute cystitis with hematuria (principal)
CPT/HCPCS: 81001; 87086; 87088; 87186

== ENCOUNTER 2021-11-26 10:17 | Emergency (ER) | payer OTHER, SELFPAY ==
--- NOTE | ~2021-11-26 | XR_ITS ---
EXAMINATION: XR TOES, LEFT CLINICAL INFORMATION: Great toe injury COMPARISON: None TECHNIQUE: 3 views of the left toes were obtained. FINDINGS: There is a minimally displaced fracture of the lateral proximal aspect of the first distal phalanx, with intra-articular extension. Soft tissue swelling. Remainder of the osseous structures appear intact. Alignment is anatomic. Joint spaces are maintained. XR/XR toe LT min 2V IMPRESSION: Minimally displaced intra-articular fracture of the proximal aspect of the first distal phalanx.
[2021-11-26 10:23] VITALS: BP 100/66; PULSE 89; RESP 18; TEMP 36.8; O2SAT 98; BMI 25.3
--- NOTE | 2021-11-26 14:38 | ED_ITS ---
HPI - General Adult General Chief complaint: Extremity Injury, Lower Stated complaint: L foot toe swollen Time Seen by Provider: 11/26/21 14:26 Source: patient Mode of arrival: ambulatory Limitations: no limitations History of Present Illness HPI narrative: 36-year-old female presents to ED for left big toe pain. Patient states she was running after her kids and they slammed the door she hit her left foot in the door. Patient denies falling on the ground or any blunt object falling on her. Patient denies hitting head or loss of consciousness. Patient states left big toe pain without any redness but with slight swelling. Related Data Home Medications Medication Instructions Recorded Confirmed fluticasone propionate 50 1 spray intranasal DAILY 08/12/20 10/19/20 mcg/actuation nasal spray,suspension ketotifen fumarate 0.025 % (0.035 drp ophthalmic (eye) 08/12/20 10/19/20 %) eye drops cyclobenzaprine 10 mg tablet 10 mg PO BEDTIME 09/14/20 10/19/20 Previous Rx's Medication Instructions Recorded ibuprofen 800 mg tablet 800 mg PO Q8H PRN pain #30 tabs 03/03/20 pyridoxine (vitamin B6) 100 mg 100 mg PO DAILY 90 days #90 tabs 10/19/20 tablet oxycodone 5 mg capsule 5 mg PO Q6H 5 days #20 caps 03/09/21 tobramycin 0.3 % eye drops 1 drp ophthalmic-Right Q4H #5 mL 07/31/21 sulfamethoxazole 800 1 tab PO BID 3 days #6 tabs 08/04/21 mg-trimethoprim 160 mg tablet (Bactrim DS) naproxen 500 mg tablet 500 mg PO BID PRN pain 7 days #28 11/26/21 tabs Allergies Allergy/AdvReac Type Severity Reaction Status Date / Time ethinyl estradiol [NuvaRing] Allergy Intermediate yeast Verified 11/26/21 10:23 infection etonogestrel [NuvaRing] Allergy Intermediate yeast Verified 11/26/21 10:23 infection medroxyprogesterone AdvReac Intermediate facial acne Verified 11/26/21 10:23 [Depo-Provera] Review of Systems Review of Systems: left big toe. Yes all other systems are reviewed and are negative PMFSH Past Medical History Medical History Kidney stones Migraine headache Pyelonephritis Surgical History H/O tubal ligation Hx of dilation and curettage Hx of dilation and curettage Social History Social History Household Members: Children Housing: House Alcohol intake: never Patient Tobacco Use Status: Current everyday Tobacco user Tobacco use type: Cigarette Cigarettes Per Day: 2 Advance Directives: No Advance Directives Information Provided: No service: No Current occupational status: employed Physical Exam ED Vital Signs: Vital Signs - 24 hr 11/26/21 10:23 Temperature 98.3 F Pulse Rate 89 Respiratory Rate 18 Blood Pressure 100/66 Pulse Oximetry 98 Oxygen Delivery Method Room Air BMI result Body Mass Index 25.3 Const General: cooperative, healthy appearing, comfortable, no acute distress, well developed, alert, awake and Physically active Orientation/consciousness: patient oriented x3 HENMT Head: Yes normal to inspection, Yes No palpable skull fracture present, Yes normocephalic, Yes atraumatic and No abrasion Eyes General: appearance normal, both eyes and all related structures Neck Neck: Yes normal visual inspection, Yes full ROM, Yes no lymphadenopathy, Yes no meningeal signs, Yes trachea midline, Yes supple, No anterior neck swelling and No tender Chest Chest palpation & inspection: normal inspection of the chest and normal palpation of entire chest wall Resp Effort & Inspection: normal respiratory effort and able to speak in complete sentences Auscultation: clear to auscultation bilaterally Cardio Jugular venous distension: no JVD Heart sounds: S1 normal heart sound present and S2 normal heart sound present GI Inspection: Yes normal to inspection and No abdominal wall ecchymosis Palpation (GI): Soft to palpation, not firm, nontender, no guarding and not rigid General: No CVA tenderness and Yes no CVA tenderness Back/Spine/Pelvis Back: no CVA tenderness, No CVA tenderness and No back tenderness Skin General skin exam: no rashes or lesions noted and elasticity normal Neuro General: patient oriented x3, gait normal, no meningeal signs and CN's II-XI intact bilaterally Cranial nerves: Yes CN's II-XII intact bilaterally Extrem General: Yes normal to inspection and Yes full ROM Ankle/foot/toe images: 1. tenderness on palpation. negative or ecchymosis, deformity, redness Psych Appearance: grossly normal, well kempt and not disheveled Course Course Course Narrative: Foot xry ordered. patiet Reevaluation(s) Reevaluation #1: Distal phlalanx fracture of big toe. olga tape. there is no walking boot. So post op shoe given Discharge Plan Discharge Clinical Impression: Fracture of distal phalanx of great toe Patient Disposition: Home, Self-Care Instructions: Toe Fracture (ED) Additional Instructions: X-ray shows fracture in your toe. He will need follow-up with orthopedic surgeon before going back to work. You will be discharged with NSAID. Return t o the ED immediately for any increased swelling, redness, bluish black discoloration, calf pain, leg swelling, or any other concerning complaints Prescriptions: New naproxen 500 mg tablet 500 mg PO BID PRN (Reason: pain) 7 Days Qty: 28 0RF No Action sulfamethoxazole-trimethoprim [Bactrim DS] 800-160 mg tablet 1 tab PO BID 3 Days Qty: 6 0RF ibuprofen 800 mg tablet 800 mg PO Q8H PRN (Reason: pain) Qty: 30 0RF tobramycin 0.3 % drops 1 drp ophthalmic-Right Q4H Qty: 5 0RF oxycodone 5 mg capsule 5 mg PO Q6H 5 Days Qty: 20 0RF fluticasone propionate 50 mcg/actuation spray,suspension 1 spray intranasal DAILY ketotifen fumarate 0.025 % (0.035 %) drops ophthalmic (eye) cyclobenzaprine 10 mg tablet 10 mg PO BEDTIME pyridoxine (vitamin B6) 100 mg tablet 100 mg PO DAILY 90 Days Qty: 90 1RF Referrals: Jurgen Falk MD [Physician] - (left great toe fracture) Stand Alone Forms: Work/School Release Interventions: ED Discharge Assessment Last Done: 11/26/21 15:15 Discharge Date/Time: 11/26/21 15:15 Print Language: Estonian
== END 2021-11-26 15:15 | disposition home or self-care (01) ==
PROVIDERS: Emergency Provider Emergency Medicine; PCP Internal Medicine
DX: S92.422A Displaced fracture of distal phalanx of left great toe, initial encounter for closed fracture (principal); Y29.XXXA Contact with blunt object, undetermined intent, initial encounter; Y93.9 Activity, unspecified; Y92.009 Unspecified place in unspecified non-institutional (private) residence as the place of occurrence of the external cause; Y99.9 Unspecified external cause status; Z79.899 Other long term (current) drug therapy; F17.210 Nicotine dependence, cigarettes, uncomplicated; Z71.6 Tobacco abuse counseling
CPT/HCPCS: 73660; 99282; 99283

== ENCOUNTER → 2021-11-30 10:51 | Outpatient (BNVA) | payer OTHER, SELFPAY | PROVIDERS: PCP Internal Medicine; Visit Provider Physician Assistant | DX: S92.402A Displaced unspecified fracture of left great toe, initial encounter for closed fracture (principal) | CPT/HCPCS: 99202 ==

== ENCOUNTER 2021-12-28 08:51 | Outpatient (REF) | payer OTHER, SELFPAY | END 2021-12-28 08:52 | disposition home or self-care (01) | LOC: HO.HOSX 08:51 | PROVIDERS: Visit Provider Physician Assistant | DX: Z13.89 Encounter for screening for other disorder (principal) ==

== ENCOUNTER 2022-04-16 11:25 | Outpatient (REF) | payer OTHER, SELFPAY ==
--- NOTE | ~2022-04-16 | US_ITS ---
EXAMINATION: US RETROPERITONEAL LIMITED (RENAL ONLY) CLINICAL INFORMATION: Calculus of kidney. COMPARISON: Ultrasound retroperitoneal limited (renal only) 03/16/2021 and 10/18/2020. CT abdomen and pelvis without contrast 08/07/2020. TECHNIQUE: Real-time imaging of the kidneys. FINDINGS: RIGHT KIDNEY: 9.8 x 3.7 x 4.4 cm (SAG x AP x TRV). The kidney is normal in size, contour, and echogenicity. Renal cortical thickness is normal. No focal parenchymal lesions or hydronephrosis. A 3 mm mid pole nonobstructing calculus is present. LEFT KIDNEY: 9.8 x 4.3 x 4.5 cm (SAG x AP x TRV). The kidney is normal in size, contour, and echogenicity. Renal cortical thickness is normal. No focal parenchymal lesions or hydronephrosis. There is a 4 mm mid pole and a 6 mm lower pole nonobstructing calculus present. Only one calculus was seen on the left at the time of the prior study. US/US renal BI IMPRESSION: Bilateral nonobstructing renal calculi.
== END 2022-04-16 11:26 | disposition home or self-care (01) ==
LOC: HO.US 11:25
PROVIDERS: PCP Internal Medicine; Visit Provider Urology
DX: N20.0 Calculus of kidney (principal)
CPT/HCPCS: 76775

== ENCOUNTER → 2022-04-24 09:38 | Outpatient (BNVA) | payer OTHER, SELFPAY | PROVIDERS: PCP Internal Medicine; Visit Provider Urology | DX: N20.0 Calculus of kidney (principal) | CPT/HCPCS: 99212 ==

== ENCOUNTER 2022-09-08 16:08 | Emergency (ER) | payer OTHER, SELFPAY ==
[2022-09-08 16:13] VITALS: BP 124/80; PULSE 59; RESP 16; TEMP 36.3; O2SAT 99; BMI 25.5
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
[2022-09-08 17:08] VITALS: BP 124/76; PULSE 88; RESP 18; TEMP 36.7; O2SAT 98
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
--- NOTE | 2022-09-08 17:39 | PC.NURSE ---
Reviewed discharge plan with patient who verbalized understanding
== END 2022-09-08 17:38 | disposition home or self-care (01) ==
PROVIDERS: Emergency Provider Emergency Medicine; PCP Internal Medicine
DX: S10.93XA Contusion of unspecified part of neck, initial encounter (principal); Y04.8XXA Assault by other bodily force, initial encounter; Y93.9 Activity, unspecified; Y92.9 Unspecified place or not applicable; Y99.9 Unspecified external cause status
CPT/HCPCS: 70360; 99283; 99284

== ENCOUNTER 2022-10-10 12:08 | Outpatient (REF) | payer OTHER, SELFPAY ==
--- NOTE | ~2022-10-10 | US_ITS ---
EXAMINATION: US RETROPERITONEAL LIMITED (RENAL ONLY) CLINICAL INFORMATION: Calculus of kidney. COMPARISON: Renal ultrasound 04/16/2022 and 03/16/2021. CT abdomen and pelvis 08/07/2020. TECHNIQUE: Real-time imaging of the kidneys. FINDINGS: RIGHT KIDNEY: 10.5 x 3.6 x 4.6 cm (SAG x AP x TRV). The kidney is normal in size, contour, and echogenicity. Renal cortical thickness is normal. No calculi or focal parenchymal lesions. No hydronephrosis. 3 mm nonobstructing upper pole stone, new from prior and 3 mm nonobstructing mid/lower pole renal stone unchanged from prior. LEFT KIDNEY: 10.7 x 5.3 x 3.8 cm (SAG x AP x TRV). The kidney is normal in size, contour, and echogenicity. Renal cortical thickness is normal. No calculi or focal parenchymal lesions. No hydronephrosis. US/US renal BI IMPRESSION: A 3 mm nonobstructing right upper pole renal stone is new from prior and a 3 mm nonobstructing mid/lower pole renal stone unchanged from prior.
== END 2022-10-10 12:09 | disposition home or self-care (01) ==
LOC: HO.US 12:08
PROVIDERS: Visit Provider Urology
DX: N20.0 Calculus of kidney (principal)
CPT/HCPCS: 76775

== ENCOUNTER 2022-10-25 09:50 | Outpatient (AMB) | payer OTHER, SELFPAY ==
--- NOTE | 2022-10-25 09:57 | A.OFFVIS_ITS ---
Intake Intake Visit Reasons: 6M US(set) Intake Note: Patient is present for Follow Up Ultrasound Urology Med:Vitamin B6 Antibiotic Allergy: None Blood Thinner: None Pharmacy: [facility] Allergies ethinyl estradiol [NuvaRing] Allergy (Intermediate, Verified 10/25/22 10:00) yeast infection etonogestrel [NuvaRing] Allergy (Intermediate, Verified 10/25/22 10:00) yeast infection medroxyprogesterone [Depo-Provera] Adverse Reaction (Intermediate, Verified 0 10/25/22 10:00) facial acne Medication List - Last Reconciled 10/25/22 by Aureliano Coles MD pyridoxine (vitamin B6) 50 mg PO DAILY 90 days HPI HPI Comments History of Present Illness Details Víctor is a pleasant female. She is a patient of Dr. Doss. She is seen for the following urologic conditions - nephrolithiasis - recurring UTI Minimal stone burden Continue B6 Encourage fluid intake Reduced UTIs secondary to improve fluid intake and increased fiber Does use cranberry Will continue Nephrolithiasis Initial presentation with ongoing urinary tract infections Interventions - 08/29 left ureteroscopy with laser lithotripsy Imaging - 07/29 CT scan with multiple left 4-6 mm stones - 10/29 renal ultrasound left 3 mm stone - 05/02 renal ultrasound bilateral 3 mm stones - 05/03 renal ultrasound left 6 mm - 10/31 renal ultrasound 3 mm stone Therapeutic plan - increase fluids - vitamin B6 Recurring UTI Previously addressed with 1 year of suppression Now intermittent PFSH Medical History Kidney stones Migraine headache Pyelonephritis Surgical History H/O tubal ligation Hx of dilation and curettage Hx of dilation and curettage Social History Household Members: Children Housing: House Alcohol intake: current Alcohol intake frequency: holidays/special occasions only Patient Tobacco Use Status: Current everyday Tobacco user Tobacco use type: Cigarette Cigarettes Per Day: 2 Substance Use Type: Marijuana service: No Current occupational status: employed 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[employer], 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 Review of Systems Const Denies chills and Denies fever(s) Card Reports no additional complaints and Denies syncope Resp Denies cough GI Denies abdominal pain and Denies heartburn Reports as per HPI and Denies change in libido Neuro Denies syncope Psych Denies change in libido Endo Denies change in libido Physical Exam Const General: cooperative, healthy appearing, comfortable and no acute distress Orientation/consciousness: patient oriented x3 HEENT Face and sinus: Yes normal facial exam Mouth: moist mucous membranes Neck Neck: Yes normal visual inspection, Yes full ROM and Yes trachea midline Chest Chest palpation & inspection: normal inspection of the chest Resp Effort & Inspection: normal respiratory effort, able to speak in complete sentences and no respiratory distress GI Inspection: Yes normal to inspection Back/Spine/Pelvis Cervical Spine: normal cervical lordosis Thoracic/Lumbar Spine: thoracic and lumbar spine normal to inspection Skin General skin exam: no rashes or lesions noted Neuro General: patient oriented x3, gait normal, tone normal and moves all extremities Extrem General: Yes normal to inspection and Yes capillary refill normal Assessment & Plan Assessment & Plan (1) UTI (urinary tract infection): Code(s): N39.0 - Urinary tract infection, site not specified Qualifiers: Hematuria presence: with hematuria Urinary tract infection type: acute cystitis Qualified Code(s): N30.01 - Acute cystitis with hematuria (2) Kidney stones: Code(s): N20.0 - Calculus of kidney Plan 12 month follow-up ultrasound Orders: Orders US renal BI 364 Days N20.0 - Calculus of kidney Medications: Refilled pyridoxine (vitamin B6) 50 mg PO DAILY 90 days 90 tabs 3RF N20.0 - Calculus of kidney Patient Instructions: Imaging studies, laboratory and physical exam results were discussed and reviewed in detail. No major barriers to patient understanding were identified. An opportunity to ask questions regarding the treatment plan was provided. All questions were answered. The patient expressed understanding and agreement with the above treatment plan. The patient is aware they should contact our office by phone for worsening of their current condition or the appearance of new urologic symptoms. Compliance is encouraged with any medications and followup testing that is ordered. It is a privilege to participate in the urologic care of your patient. If you have any questions or concerns regarding treatment for the above conditions, or other urologic issues, please do not hesitate to contact me. The office telephone contact is [phone]. This note is constructed using voice recognition software. While every effort has been made to ensure accuracy [employer] errors may have been included. Yours sincerely, Dr Aureliano Coles MD, [facility] - Urology Providers of Expert, Compassionate Care for the Genitourinary System Coding Level of Care Code Est Pt Level 3 (34741) Diagnoses UTI (urinary tract infection) N30.01 Hematuria presence: with hematuria Urinary tract infection type: acute cystitis Kidney stones N20.0
== END 2022-10-25 10:22 | disposition home or self-care (01) ==
PROVIDERS: PCP Internal Medicine; Visit Provider Urology
DX: N30.01 Acute cystitis with hematuria (principal); N20.0 Calculus of kidney
CPT/HCPCS: 99213

== ENCOUNTER → 2022-10-25 09:55 | Outpatient (BNVA) | payer OTHER, SELFPAY | PROVIDERS: PCP Internal Medicine; Visit Provider Urology | DX: N30.01 Acute cystitis with hematuria (principal); N20.0 Calculus of kidney | CPT/HCPCS: 99212 ==

== ENCOUNTER 2022-12-04 12:04 | Outpatient (REF) | payer OTHER, SELFPAY ==
[2022-12-04 13:40] LABS: Appearance Urine Clear; Color Urine Yellow; Glucose Urine UA Negative (Negative); Leukocyte Esterase Urine Trace (Negative); Nitrite Urine Positive (Negative); UMIC TRIGGER UA YES; Urine Blood Small (1+) (Negative); Urine Ketones Negative (Negative); Urine Protein Negative (Neg-Trace)
[2022-12-04 13:54] LABS: Bacteria Urine 4+ (None Seen); Hyaline Casts Urine 0-2 /LPF (0-2); RBC Urine 0-2 /HPF (0-2); Squamous Epithelial Cell Urine 0-2 /HPF (0-2)
[2022-12-04 14:04] LABS: Erythrocyte Sedimentation Rate 7 MM/HR (0-20)
[2022-12-04 14:31] LABS: Rheumatoid Factor < 13.0 IU/mL (<15.0)
[2022-12-06 13:53] LABS: Cyclic Citrullinated Peptide <16 UNITS
== END 2022-12-04 12:05 | disposition home or self-care (01) ==
LOC: HO.LAB 12:04
PROVIDERS: Absent Provider Urology; PCP Internal Medicine; Visit Provider Internal Medicine
DX: N30.01 Acute cystitis with hematuria (principal); M25.541 Pain in joints of right hand; M65.341 Trigger finger, right ring finger; N70.11 Chronic salpingitis; R10.31 Right lower quadrant pain
CPT/HCPCS: 36415; 81001; 85652; 86200; 86431; 87086; 87088; 87186

== ENCOUNTER 2023-05-22 14:23 | Outpatient (REF) | payer OTHER, SELFPAY ==
--- NOTE | ~2023-05-22 | US_ITS ---
EXAMINATION: US PELVIS CLINICAL INFORMATION: Bilateral adnexal cyst. COMPARISON: CT pelvis 08/07/2020. TECHNIQUE: Ultrasound of the pelvis is performed using both transabdominal and transvaginal transducers along with Doppler. Transvaginal imaging is performed due to inadequate visualization transabdominally. FINDINGS: Uterus: The uterus measures 8.4 x 3.5 x 5.0 cm. The uterus is anteverted and anteflexed. The uterus appears normal. Endometrial stripe is 9 mm. Adnexa: The right ovary measures 2.3 x 0.8 x 1.3 cm, volume 1.3 mL. Suspect hydrosalpinx on the right. The left ovary measures 2.0 x 1.3 x 1.6 cm, volume 2.2 mm. The left ovary appears normal. US/US pelvic and transvaginal IMPRESSION: No suspicious ovarian lesion. Right hydrosalpinx.
== END 2023-05-22 14:24 | disposition home or self-care (01) ==
LOC: HO.US 14:23
PROVIDERS: PCP Internal Medicine; Visit Provider Internal Medicine
DX: R10.2 Pelvic and perineal pain (principal); N83.8 Other noninflammatory disorders of ovary, fallopian tube and broad ligament
CPT/HCPCS: 76830; 76856

== ENCOUNTER 2023-06-03 15:54 | Outpatient (REF) | payer OTHER, SELFPAY ==
--- NOTE | ~2023-06-03 | XR_ITS ---
EXAMINATION: XR CHEST CLINICAL INFORMATION: Preoperative. COMPARISON: Chest radiograph 02/28/2021. TECHNIQUE: 2 views of the chest were obtained. FINDINGS: Normal appearance of the cardiomediastinal silhouette. No focal airspace opacities, pleural effusions or pneumothorax. No pulmonary edema. Age indeterminate nondisplaced deformity of the left posterolateral eighth rib, new compared to 2020. XR/XR chest 2V IMPRESSION: 1. No acute cardiopulmonary findings. 2. Age indeterminate nondisplaced deformity of the left posterolateral eighth rib, new compared to 2020. Correlate with point tenderness.
== END 2023-06-03 15:55 | disposition home or self-care (01) ==
LOC: HO.XRAY 15:54
PROVIDERS: PCP Internal Medicine; Visit Provider Internal Medicine
DX: Z01.818 Encounter for other preprocedural examination (principal)
CPT/HCPCS: 71046

== ENCOUNTER 2023-07-05 08:55 | Emergency (ER) | payer OTHER, SELFPAY ==
[2023-07-05 09:36] VITALS: BP 108/78; PULSE 73; RESP 18; TEMP 37.1; O2SAT 99; BMI 26.4
--- NOTE | 2023-07-05 09:42 | ED.HA ---
HPI - Headache General Chief Complaint: Headache Stated Complaint: migraine 4 days Time Seen by Provider: 07/05/23 09:30 Source: patient Mode of arrival: ambulatory Limitations: no limitations History of Present Illness HPI Narrative: Patient is a 38-year-old female who presents to the emergency department for evaluation of a frontal headache consistent with her prior migraines. She reports it has been present for the past 4 days. She states that she was evaluated at [facility] yesterday and was given Fioricet and a single dose of Toradol with only minimal relief from her pain. She reports that she typically has significant improvement from ?the IV medicine?. She denies any vision changes, fevers, chills, neck pain, neck stiffness, numbness or tingling of the extremities, poor coordination abnormal gait. Related Data Previous Rx's ?Medication ?Instructions ?Recorded pyridoxine (vitamin B6) 50 mg 50 mg PO DAILY 90 days #90 tabs 10/25/22 tablet sulfamethoxazole 800 1 tab PO BID 5 days #10 tabs 12/06/22 mg-trimethoprim 160 mg tablet (Bactrim DS) Allergies Allergy/AdvReac Type Severity Reaction Status Date / Time ethinyl estradiol [NuvaRing] Allergy Intermediate yeast Verified 07/05/23 09:39 infection etonogestrel [NuvaRing] Allergy Intermediate yeast Verified 07/05/23 09:39 infection medroxyprogesterone AdvReac Intermediate facial acne Verified 07/05/23 09:39 [Depo-Provera] Review of Systems Review of Systems: Yes all other systems are reviewed and are negative PMFSH Past Medical History Attestation statement: The following information was validated with the patient. Source: old records reviewed Medical History Kidney stones Migraine headache Pyelonephritis Surgical History Hx of dilation and curettage Hx of dilation and curettage H/O tubal ligation Social History Social History Household Members: Children Housing: House Alcohol intake: current Alcohol intake frequency: holidays/special occasions only Patient Tobacco Use Status: Current everyday Tobacco user Tobacco use type: Cigarette Cigarettes Per Day: 2 Substance Use Type: Marijuana Advance Directives: No Advance Directives Information Provided: No Do you have a plan to hurt others: No Plan service: No Current occupational status: employed 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 No acute distress.?Normal affect. Eyes: Pupils equal, round and reactive to light.? EOMI. No nystagmus. ENT: Pharynx normal.?? Neck: Normal inspection.? Neck supple.??No nuchal rigidity. CVS: Heart sounds normal. Normal heart rate and rhythm.? Pulses normal.?? Respiratory: No respiratory distress.? Lung sounds clear to auscultation bilaterally?? Abdomen: Soft and non-tender. Normoactive bowel sounds. Skin: Skin warm and dry.? Normal skin color.? Extremities: No lower extremity edema.? No calf ttp? Neuro: Moves all extremities spontaneously. Sensation intact bilaterally. CN II-XII intact. No focal neuro deficits. Ambulates with normal steady gait. Course Reevaluation(s) Reevaluation #1: Headache has resolved at this time. She is requesting referral to Neurology for management of her chronic migraines, I did advise her that she could speak with her primary care provider in regards to this. Reviewed worrisome signs and symptoms that would warrant re-evaluation in the emergency department. All questions answered. Stable for discharge. Time: 11:46 Medications Administered Discontinued Medications Generic Name Dose Route Start Last Admin Trade Name Freq PRN Reason Stop Dose Admin Diphenhydramine HCl 25 mg 07/05/23 10:06 07/05/23 10:55 Diphenhydramine Hcl 50 Mg/Ml Vial IVPUSH 07/05/23 10:07 25 mg ONCE ONE Administration Sodium Chloride 1,000 mls @ 999 mls/hr 07/05/23 10:15 07/05/23 10:52 Ns IV 07/05/23 11:15 999 mls/hr .Q1H1M BARON Administration Ketorolac Tromethamine 30 mg 07/05/23 10:06 07/05/23 10:54 Ketorolac Tromethamine 30 Mg/Ml Vial IVPUSH 07/05/23 10:07 30 mg ONCE ONE Administration Metoclopramide HCl 10 mg 07/05/23 10:06 07/05/23 10:56 Metoclopramide Hcl 10 Mg/2 Ml Vial IVPUSH 07/05/23 10:07 10 mg ONCE ONE Administration Medical Decision Making Medical Decision Making MDM Narrative: Patient is a 38-year-old female with past medical history of migraine headaches presenting to emergency department for evaluation of a frontal headache as per HPI. Differential diagnosis with presentation includes SDH, SAH, ICH, [employer] mass, meningitis, encephalitis, CVA, GCA, migraine, headache. History without concerning exposures, not exacerbated or worsened by exertion, no red flag symptoms, vision changes, under the age of 50, no new no compromising conditions, no focal neurological abnormalities. Patient with a history of recurrent and or similar headache, there is no substantial change to typical headache pattern, there are no red flag symptoms, no focal neurological deficits, no high risk comorbidities. Management in the emergency department with normal saline IV fluid, Toradol/Reglan/Benadryl IV. Differential Diagnosis Differential Diagnoses: The differential diagnosis associated with the presentation includes (See narrative above) Admission/Observation Consideration of admission/observation: Escalation of care including admission/observation considered (See narrative above) Independent Historian Clinical information obtained from an independent historian. History obtained from or confirmed by: Spouse External Record Review External record reviewed: Outpatient record Tests considered The following testing was considered but not selected: See narrative above, CT head deferred Prescription Management I considered prescription management with: Pain Medication Discharge Plan Discharge Clinical Impression: Migraine headache Patient Disposition: Home, Self-Care Prescriptions: No Action sulfamethoxazole-trimethoprim [Bactrim DS] 800-160 mg tablet 1 tab PO BID 5 Days Qty: 10 0RF pyridoxine (vitamin B6) 50 mg tablet 50 mg PO DAILY 90 Days Qty: 90 3RF Referrals: [facility] [place] Neuro/Sleep [Provider Group] Interventions: ED Discharge Assessment Last Done: 07/05/23 12:08 Discharge Date/Time: 07/05/23 12:11 Print Language: Lebanese
[2023-07-05 10:23] VITALS: BP 111/62; PULSE 76; RESP 20; TEMP 36.7; O2SAT 99
[2023-07-05] MEDS: 0.9 % Sodium Chloride 1,000 ML 999 ML IV (10:52)
[2023-07-05] MEDS: Ketorolac Tromethamine 30 MG/ML VIAL IVPUSH (10:54)
[2023-07-05] MEDS: diphenhydrAMINE HCL 50 MG/ML VIAL 25 MG IVPUSH (10:55)
[2023-07-05] MEDS: Metoclopramide HCl 10 MG/2 ML VIAL IVPUSH (10:56)
[2023-07-05 11:35] VITALS: BP 109/55; PULSE 76; TEMP 37.4; O2SAT 100
[2023-07-05 12:08] VITALS: BP 136/84; PULSE 76; RESP 16; TEMP 37; O2SAT 98
== END 2023-07-05 12:11 | disposition home or self-care (01) ==
PROVIDERS: Emergency Provider Student in an Organized Health Care Education/Training Program; PCP Internal Medicine
DX: G43.909 Migraine, unspecified, not intractable, without status migrainosus (principal); F17.210 Nicotine dependence, cigarettes, uncomplicated
CPT/HCPCS: 96374; 96375; 99284; J1200; J1885; J2765

== ENCOUNTER 2023-11-28 13:35 | Outpatient (REF) | payer OTHER, SELFPAY ==
[2023-11-28 14:21] LABS: Appearance Urine Cloudy; Color Urine Yellow; Glucose Urine UA Negative (Negative); Leukocyte Esterase Urine Trace (Negative); Nitrite Urine Positive (Negative); PH 6.5 (5.0-9.0); UMIC TRIGGER UA YES; Urine Blood Moderate (2+) (Negative); Urine Ketones Negative (Negative); Urine Protein Negative (Neg-Trace)
[2023-11-28 14:26] LABS: Bacteria Urine 4+ (None Seen); Hyaline Casts Urine 0-2 /LPF (0-2); Squamous Epithelial Cell Urine 0-2 /HPF (0-2)
== END 2023-11-28 13:36 | disposition home or self-care (01) ==
LOC: HO.LAB 13:35
PROVIDERS: PCP Internal Medicine; Visit Provider Urology
DX: N30.01 Acute cystitis with hematuria (principal)
CPT/HCPCS: 81001; 87086; 87088; 87186

== ENCOUNTER 2024-01-03 13:03 | Outpatient (REF) | payer OTHER, SELFPAY ==
--- NOTE | ~2024-01-03 | US_ITS ---
EXAMINATION: US RETROPERITONEAL LIMITED (RENAL ONLY) CLINICAL INFORMATION: Acute cystitis with hematuria. COMPARISON: Ultrasound renal 10/10/2022 and 04/16/2022. . TECHNIQUE: Real-time imaging of the kidneys using grayscale and color Doppler technique. FINDINGS: RIGHT KIDNEY: 10 x 4 x 5 cm (SAG x AP x TRV). The kidney is normal in size, contour, and echogenicity. Renal cortical thickness is normal. Questionable 2 mm hyperechoic lesion in the midportion. No hydronephrosis. LEFT KIDNEY: 9 x 5 x 4 cm (SAG x AP x TRV). The kidney is normal in size, contour, and echogenicity. Renal cortical thickness is normal. No renal calculi or hydronephrosis. 0 point centimeter exophytic anechoic lesion in the midportion without flow on color Doppler interrogation. US/US renal BI IMPRESSION: No hydronephrosis. Probable nonobstructing calculus, right kidney. 0.8 cm simple cyst, left kidney.. Electronically signed by: Everton Law MD 01/16/2024 02:03 PM ENIO REYES
== END 2024-01-03 13:04 | disposition home or self-care (01) ==
LOC: HO.US 13:03
PROVIDERS: PCP Internal Medicine; Visit Provider Urology
DX: N30.01 Acute cystitis with hematuria (principal); N20.0 Calculus of kidney
CPT/HCPCS: 76775

== ENCOUNTER → 2024-01-03 13:04 | Outpatient (BNV) | payer OTHER, SELFPAY | PROVIDERS: PCP Internal Medicine; Visit Provider Radiology Diagnostic Radiology | DX: N30.01 Acute cystitis with hematuria (principal) | CPT/HCPCS: 76775 ==

== ENCOUNTER 2024-01-09 12:00 | Outpatient (AMB) | payer OTHER, SELFPAY ==
--- NOTE | 2024-01-09 11:59 | A.OFFVIS_ITS ---
Intake Visit Reasons: follow up/US Intake Note: Patient presents today for follow up on: nephrolithiasis Urology Med:Vitamin B6 Antibiotic Allergy: None Blood Thinner: None [facility]acy: [facility] Required: No Accompanied by: Self / Same As Patient Allergies ethinyl estradiol [NuvaRing] Allergy (Intermediate, Verified 01/09/24 12:49) yeast infection etonogestrel [NuvaRing] Allergy (Intermediate, Verified 01/09/24 12:49) yeast infection medroxyprogesterone [Depo-Provera] Adverse Reaction (Intermediate, Verified 01/09/24 12:49) facial acne Medication List - Last Reconciled 01/09/24 by BETTY Mandel pyridoxine (vitamin B6) 50 mg PO DAILY 90 days HPI Comments Details: Víctor is a pleasant 39-year-old female patient of Dr. Doss. She has a past medical history of migraines, pyelonephritis, and nephrolithiasis. She presents to the office today for follow-up of her nephrolithiasis and pyelonephritis. In discussion with the patient today she reports to be doing and feeling well. She denies any urological issues or concerns since her last office visit here approximately a year ago. Recent renal imaging results reviewed with the patient today. Bilateral kidneys are normal in size, contour, and echogenicity. No hydronephrosis. Probable nonobstructing 2 mm calculus in the right kidney. 0.8 cm simple cyst in the left kidney. When asked she reports to be drinking plenty of water daily. She reports compliance with vitamin B6 and lemon juice to water daily. She denies urinary urgency, urinary frequency, incontinence, nocturia, hematuria, dysuria, foul smelling urine, changes to urinary stream, flank pain, fever, and or chills. She is happy with her current voiding parameters. In office urinalysis results reviewed with the patient today. She otherwise offers no other issues or concerns at this time. Nephrolithiasis Initial presentation with ongoing urinary tract infections Interventions - 08/29 left ureteroscopy with laser lithotripsy Imaging - 07/29 CT scan with multiple left 4-6 mm stones - 10/29 renal ultrasound left 3 mm stone - 05/02 renal ultrasound bilateral 3 mm stones - 05/03 renal ultrasound left 6 mm - 10/31 renal ultrasound 3 mm stone Therapeutic plan - increase fluids - vitamin B6 Recurring UTI Previously addressed with 1 year of suppression Now intermittent PFSH Medical History Kidney stones Migraine headache Pyelonephritis Surgical History Hx of dilation and curettage Hx of dilation and curettage H/O tubal ligation Social History Household Members: Children Housing: House Alcohol intake: current Alcohol intake frequency: holidays/special occasions only Patient Tobacco Use Status: Current everyday Tobacco user Tobacco use type: Cigarette Cigarettes Per Day: 2 Substance Use Type: Marijuana service: No Current occupational status: employed 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[employer], 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 Review of Systems Const All systems reviewed & are unremarkable except as noted in HPI and below Physical Exam Const General: cooperative, healthy appearing, comfortable, no acute distress, well developed, alert and awake Orientation/consciousness: patient oriented x3 Limitations: no limitations HEENT Head: Yes normal to inspection, Yes normocephalic and Yes atraumatic Ears: hearing grossly normal bilaterally Eyes General: appearance normal, both eyes and all related structures Neck Neck: Yes normal visual inspection and Yes trachea midline Chest Chest palpation & inspection: normal inspection of the chest Resp Effort & Inspection: normal respiratory effort and able to speak in complete sentences Cardio Rate: regular rate GI Inspection: Yes normal to inspection General: Yes no CVA tenderness Back/Spine/Pelvis Back: no CVA tenderness Skin General skin exam: no rashes or lesions noted Neuro General: patient oriented x3 Extrem General: Yes normal to inspection Psych Appearance: grossly normal and well kempt Mental Status: mental status grossly normal Speech and movement: Normal speech and movement present and Clear speech present Affect: normal affect Attitude: cooperative Thought process: Normal thought process present Thought content: Normal thought content present Insight: Fair insight present (Psych) Judgement: Fair judgement present (Psych) Results AMB Urinalysis, Automated UA Leukoctes 0 Paige/uL Last Edit by [employer] on 01/09/24 12:13 UA Nitrite Last Edit by [employer] on 01/09/24 12:13 UA Urobilinogen 0.2 mg/dL Last Edit by [employer] on 01/09/24 12:13 UA Protein 0 mg/dL Last Edit by [employer] on 01/09/24 12:13 UA pH 6.5 Last Edit by [employer] on 01/09/24 12:13 UA Blood 80 Joe/uL Last Edit by [employer] on 01/09/24 12:13 UA Specific [place] 1.015 Last Edit by [employer] on 01/09/24 12:13 UA Ketone Last Edit by [employer] on 01/09/24 12:13 UA Bilirubin 0 mg/dL Last Edit by [employer] on 01/09/24 12:13 UA Glucose 0 mg/dL Last Edit by [employer] on 01/09/24 12:13 Results Reviewed Results Reviewed: Laboratory Last Values Urine pH (Auto) 6.5 01/09/24 12:06 Specific [place] (Auto) 1.015 01/09/24 12:06 Urine Protein (Auto) 0 mg/dL 01/09/24 12:06 Glucose (UA)(Auto) 0 mg/dL 01/09/24 12:06 Urine Blood (Auto) 80 Joe/uL 01/09/24 12:06 Urine Bilirubin (Auto) 0 mg/dL 01/09/24 12:06 Urine Urobilinogen (Auto) 0.2 mg/dL 01/09/24 12:06 Leukocyte Esterase (Auto) 0 Paige/uL 01/09/24 12:06 Date of Service: 01/03/24 EXAMINATION: US RETROPERITONEAL LIMITED (RENAL ONLY) FINDINGS: RIGHT KIDNEY: 10 x 4 x 5 cm (SAG x AP x TRV). The kidney is normal in size, contour, and echogenicity. Renal cortical thickness is normal. Questionable 2 mm hyperechoic lesion in the midportion. No hydronephrosis. LEFT KIDNEY: 9 x 5 x 4 cm (SAG x AP x TRV). The kidney is normal in size, contour, and echogenicity. Renal cortical thickness is normal. No renal calculi or hydronephrosis. 0 point centimeter exophytic anechoic lesion in the midportion without flow on color Doppler interrogation. IMPRESSION: No hydronephrosis. Probable nonobstructing calculus, right kidney. 0.8 cm simple cyst, left kidney. Assessment & Plan Assessment & Plan (1) Kidney stones: Code(s): N20.0 - Calculus of kidney Category: Medical (2) Renal cyst: Code(s): N28.1 - Cyst of kidney, acquired Category: Medical Plan In office urinalysis results reviewed with the patient today; as noted above. Recent renal imaging results reviewed with the patient today; as noted above. Continue drinking plenty of water daily Continue adding 1 oz of lemon juice to water daily Continue vitamin B6 as discussed and prescribed. Will obtain renal ultrasound in 1 year. Follow-up 1 year with imaging to be completed prior; or sooner with any issues, concerns, and or questions. Orders: Orders AMB Urinalysis Automated 01/09/24 Z13.9 - Encounter for screening, unspecified Patient Instructions: The patient had an opportunity to ask questions regarding the treatment plan. All questions were answered. Physical exam, labs, and imaging were discussed and reviewed in detail. As well as risks, benefits, and discussion of treatment choices. No major barriers to understanding were identified. The patient expressed understanding and agreement with the above treatment plan. The patient was made aware they should contact our office by phone for worsening of their current condition, the appearance of new symptoms, or with any questions or concerns. Compliance is encouraged with any medications and follow up testing that is ordered. It is a privilege to be allowed the opportunity to participate in? your urological care.? Again, if you have any questions or c oncerns If you have any questions or concerns please do not hesitate to contact me. The office is [phone]. This note is constructed using voice recognition software. While every effort has been made to ensure accuracy furniture sales associate errors may have been included. Yours sincerely, BETTY Mandel Coding Level of Care Code Est Pt Level 3 (87254) Diagnoses Kidney stones N20.0 Renal cyst N28.1
== END 2024-01-09 12:19 | disposition home or self-care (01) ==
LOC: HO.HUSH 12:00
PROVIDERS: PCP Internal Medicine; Visit Provider Nurse Practitioner Family
DX: N20.0 Calculus of kidney (principal); N28.1 Cyst of kidney, acquired
CPT/HCPCS: 99213

== ENCOUNTER → 2024-01-09 12:00 | Outpatient (BNVA) | payer OTHER, SELFPAY | PROVIDERS: PCP Internal Medicine; Visit Provider Nurse Practitioner Family | DX: N20.0 Calculus of kidney (principal); N28.1 Cyst of kidney, acquired | CPT/HCPCS: 81003; 99212 ==

== ENCOUNTER 2024-06-17 11:58 | Outpatient (REF) | payer OTHER, SELFPAY ==
[2024-06-17 13:34] LABS: MANUAL DIFF FLAG NO
--- OUTSIDE RECORDS SUMMARY | 2024-06-17 14:05 | XMS_ITS | Clinical Summary ---
Author Organization [address] [place] [address] Address [address] [place] [address] Phone Care Team Providers Care Baccarat Dealer Name Role Phone Michelle Wong MD Primary Care Provider [phone] Social History Tobacco Use Types Packs/Day Years Used Date Smoking Tobacco: Never Assessed Comments Unknown Sex and Gender Information Value Date Recorded Sex Assigned at Not on file Legal Sex Female 2:15 AM EST Gender Identity Not on file Sexual Orientation Not on file Plan of Treatment Upcoming Encounters Date Type Department Care Team ([facility] st Contact Info) Description 07/01/2024 9:45 AM EDT Consult General Surgery [address] [address] Rodrigo Harden, DO [address] [address] Health Maintenance Due Date Last Done Comments Breast Cancer Screening 1984 DTaP,Tdap,and Td Vaccines (1 - Tdap) 01/05/2003 Hepatitis B Vaccines (1 of 3 - 19+ 3-dose series) 01/05/2003 Cervical Cancer Screening: P ap Smear 01/05/2005 Depression Screening 02/11/2022 HIV Screening 02/11/2022 Hepatitis C Screening 02/11/2022 Social Influencers of Health Screening 02/11/2022 COVID-19 Vaccine (2023-2 5 season) 2023 Influenza Vaccine (Season Ended) 2024 HIB Vaccines Aged Out No longer eligi ble based on patient's age to complete this topic HPV Vaccines Aged Out No longer eligi ble based on patient's age to complete this topic Hepatitis A Vaccines Aged Out No long er eligible based on patient's age to complete this topic IPV Vaccines Aged Out No longer eligi ble based on patient's age to complete this topic MMR Vaccines Aged Out No longer eligi ble based on patient's age to complete this topic Meningococcal ACWY Vaccine Aged Out N o longer eligible based on patient's age to complete this topic Meningococcal B Vaccine Aged Out No l onger eligible based on patient's age to complete this topic Pneumococcal Vaccine: Pediat rics (0 to 5 Years) and At-Risk Patients (6 to 64 Years) Aged Out No longer eligible b ased on patient's age to complete this topic RSV Immunization Patients Un mahesh 20 months Aged Out No longer eligible b ased on patient's age to complete this topic Varicella Vaccines Aged Out No longer eligible based on patient's age to complete this topic Insurance MEDICAID - [place] Care Teams Baccarat Dealer Relationship Specialty Start Date End Date Michelle Wong MD [facility] [address] PCP - General Internal Medicine 12/08/20
[2024-06-17 14:21] LABS: Syphilis Screen Nonreactive (Nonreactive)
[2024-06-17 14:22] LABS: Basophils Percent Auto 0.7 % (0-2); Eosinophils Absolute Auto 0.1 X10*3/uL (0.0-0.4); Eosinophils Percent Auto 1.2 % (0-4); Hemoglobin 12.4 g/dl (12.0-16.0); Imm Gran Abs Auto 0.01 X10*3/uL (0.00-0.03); Imm Gran Pct Auto 0.2 % (0.0-0.4); Lymphocytes Absolute Auto 1.4 X10*3/uL (1.2-4.9); Mean Corpuscular HGB Conc 32.6 g/dl (31.0-35.0); Mean Corpuscular Hemoglobin 33.2 pg (27.0-33.0); Mean Corpuscular Volume 101.6 fL (80.0-98.0); Mean Platelet Volume 10.3 fL (9.4-12.3); Monocytes Absolute Auto 0.6 X10*3/uL (0.1-1.2); Monocytes Percent Auto 9.6 % (2-11); Neutrophils Absolute Auto 3.8 x10*3/uL (2.0-8.3); Neutrophils Percent Auto 64.3 % (45-73); Platelet Count 216 X10*3/uL (160-400); Red Blood Count 3.74 X10*6/uL (4.20-5.50); Red Cell Distribution Width 11.9 % (11.0-16.0); White Blood Count 5.9 X10*3/uL (4.8-10.8)
[2024-06-17 14:31] LABS: Alanine Aminotransferase 21 U/L (0-31); Albumin Level 4.2 g/dL (3.5-5.0); Alkaline Phosphatase 50 U/L (39-117); Anion Gap 10 (12-20); Aspartate Amino Transferase 26 U/L (5-31); Bilirubin Total 0.4 mg/dL (0.0-1.0); Blood Urea Nitrogen 15 mg/dL (9-16); Calcium 9.1 mg/dL (8.4-10.2); Carbon Dioxide 25 mmol/L (22-29); Chloride 109 mmol/L (96-108); Estimated Glomerular Filt Rate > 60; Glucose Random 88 mg/dL (60-115); Potassium 3.7 mmol/L (3.3-5.1); Sodium 140 mmol/L (135-145); Total Protein 7.1 g/dL (6.5-8.0)
[2024-06-17 14:50] LABS: Ferritin 68 ng/mL (10-250)
[2024-06-17 16:09] LABS: CT PCR NOT DETECTED (Not Detect.); NG PCR NOT DETECTED (Not Detect.)
[2024-06-18 06:52] LABS: HIV AB/AG Nonreactive (Nonreactive); HIV Num 1 0.09 S/CO (0.00-0.99)
[2024-06-18 07:33] LABS: Follicle Stimulating Hormone 7.2 mIU/mL
== END 2024-06-17 11:59 | disposition home or self-care (01) ==
LOC: HO.10HDL 11:58
PROVIDERS: Visit Provider Internal Medicine
DX: Z00.00 Encounter for general adult medical examination without abnormal findings (principal); Z11.3 Encounter for screening for infections with a predominantly sexual mode of transmission; Z11.4 Encounter for screening for human immunodeficiency virus [HIV]; N92.1 Excessive and frequent menstruation with irregular cycle; G43.109 Migraine with aura, not intractable, without status migrainosus
CPT/HCPCS: 80053; 82728; 83001; 85025; 86780; 87389; 87491; 87591

== ENCOUNTER → 2024-10-25 09:29 | Outpatient (BNV) | payer OTHER, SELFPAY | PROVIDERS: PCP Internal Medicine; Visit Provider Radiology Diagnostic Radiology | DX: S92.354A Nondisplaced fracture of fifth metatarsal bone, right foot, initial encounter for closed fracture (principal) | CPT/HCPCS: 73600; 73630 ==

== ENCOUNTER 2024-10-25 09:46 | Emergency (ER) | payer OTHER, SELFPAY ==
--- NOTE | ~2024-10-25 | XR_ITS ---
CLINICAL HISTORY: fall, swelling bruising 3 view right foot Comparison: None provided Findings: There is a nondisplaced fracture at the base of the 5th metatarsal. No significant loss of joint space, osteophytes, or erosions. No ankle effusion. No radiopaque foreign body. IMPRESSION: There is a nondisplaced fracture at the base of the 5th metatarsal. This document has been electronically signed by: Gurmeet Lowe MD on 10/25/2024 11:14:48
--- NOTE | ~2024-10-25 | XR_ITS ---
CLINICAL HISTORY: fall, swelling bruising 3 view right ankle Comparison: None provided Findings: There is a nondisplaced fracture of the base of the 5th metacarpal. No significant arthritic change or erosions. No ankle effusion. No radiopaque foreign body. IMPRESSION: 1. Nondisplaced fracture of the base of the 5th metacarpal. This document has been electronically signed by: Gurmeet Lowe MD on 10/25/2024 11:15:16
[2024-10-25 09:48] VITALS: BP 98/55; PULSE 80; RESP 18; TEMP 36.4; O2SAT 98; BMI 24.6
--- NOTE | 2024-10-25 11:59 | ED.GENADULT ---
HPI - General Adult General Chief complaint: Extremity Injury, Lower Stated complaint: right foot injurgy Time Seen by Provider: 10/25/24 11:53 Source: patient Mode of arrival: ambulatory Limitations: no limitations History of Present Illness HPI narrative: 39-year-old female presents for evaluation of right foot pain. Patient states last night she was stepping off of a curb and did not see a pot hole there. Patient states she twisted her right foot. She had instant pain. She was able to ambulate after the incident but with considerable pain. She denies any history of previous injury. She has not tried any medication. Because of continued pain, the patient present into department for further evaluation. Related Data Previous Rx's ?Medication ?Instructions ?Recorded pyridoxine (vitamin B6) 50 mg 50 mg PO DAILY 90 days #90 tabs 10/25/22 tablet oxycodone 5 mg tablet 5 mg PO TID PRN pain, severe #14 10/25/24 tabs Allergies Allergy/AdvReac Type Severity Reaction Status Date / Time ethinyl estradiol (NuvaRing) Allergy Intermediate yeast Verified 10/25/24 09:51 infection etonogestrel (NuvaRing) Allergy Intermediate yeast Verified 10/25/24 09:51 infection medroxyprogesterone AdvReac Intermediate facial acne Verified 10/25/24 09:51 (Depo-Provera) Review of Systems Musculoskeletal: Musculoskeletal: Reports other (Pain right foot) [facility] Past Medical History Medical History Kidney stones Migraine headache Pyelonephritis Surgical History Hx of dilation and curettage Hx of dilation and curettage H/O tubal ligation Social History Social History Household Members: Children Housing: House Alcohol intake: current Alcohol intake frequency: holidays/special occasions only Patient Tobacco Use Status: Current everyday Tobacco user Tobacco use type: Cigarette Cigarettes Per Day: 2 Substance Use Type: Marijuana Advance Directives: No Advance Directives Information Provided: No service: No Current occupational status: employed 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 Diffuse tenderness to the right 5th metatarsal. DP pulses are +2 and equal bilaterally. There was no proximal tibial tenderness. Course Course Course Narrative: 12:05 p.m. spoke with Alba from the orthopedic team, reviewed image findings. Recommending short orthopedic boot. Reviewed all discharge instructions including crutch teaching, boot and medications. PDMP reviewed, no recent medications. Reviewed all discharge instructions, no further questions at this time. Medications Administered Discontinued Medications Generic Name Dose Route Start Last Admin Trade Name Freq PRN Reason Stop Dose Admin Acetaminophen 975 mg 10/25/24 11:59 10/25/24 12:03 Acetaminophen 325 Mg Tablet PO 10/25/24 12:00 975 mg ONCE ONE Administration Procedures Orthopedic Splinting/Casting Injury #1: Side: right Lower Extremity Injury Location: foot Lower Extremity Immobilizer: boot orthosis Other Orthopedic Equipment: crutches Medical Decision Making Medical Decision Making MDM Narrative: 39-year-old female with right foot pain secondary to twisting of the foot. X-ray demonstrating right 5th metatarsal fracture, Hill fracture. We will consult ortho. Differential Diagnosis Differential Diagnoses: The differential diagnosis associated with the presentation includes Fracture Dislocation Contusion Sprain Consult Healthcare Provider Management of the patient was discussed with: Medical Transcription Radiology Radiology Impression Discussion of test interpretation with radiology: I have reviewed the radiologist's reading. Prescription Management I considered prescription management with: Pain Medication Discharge Plan Discharge Clinical Impression: Metatarsal fracture Qualifiers: Encounter type: initial encounter Metatarsal bone: fifth Fracture type: closed Fracture alignment: nondisplaced Laterality: right Qualified Code(s): S92.354A - Nondisplaced fracture of fifth metatarsal bone, right foot, initial encounter for closed fracture Patient Disposition: Home, Self-Care Instructions: Crutch Instructions (ED), Foot Fracture in Adults (ED) Additional Instructions: Rest. Ice. Elevate. Tylenol as directed, available [id number]. Oxycodone as directed for severe pain. This is a narcotic medication and may be habit-forming. Use with caution. Do not drive, drink alcohol or operate heavy machinery while taking this medication. Follow up with orthopedic referral Follow-up with your primary care provider. Call this week to schedule a follow-up appointment. Return to the emergency department if you have any worsening of symptoms, or any concerns. Get well soon! Prescriptions: New oxycodone 5 mg tablet 5 mg PO TID PRN (Reason: pain, severe) Qty: 14 0RF Rx Instructions: Partial Fill upon patient request. No Action pyridoxine (vitamin B6) 50 mg tablet 50 mg PO DAILY 90 Days Qty: 90 3RF Referrals: [facility] [place] [place] Orthopedic Surgeons [Provider Group] Referral Note: right 5th metatarsal fx Stand Alone Forms: Work/School Release Interventions: ED Discharge Assessment Last Done: 10/25/24 12:24 Discharge Date/Time: 10/25/24 12:25 Print Language: Sammarinese
--- NOTE | 2024-10-25 12:03 | ED_ITS ---
HPI - General Adult General Chief complaint: Extremity Injury, Lower Stated complaint: right foot injurgy Time Seen by Provider: 10/25/24 11:53 Related Data Previous Rx's ?Medication ?Instructions ?Recorded pyridoxine (vitamin B6) 50 mg 50 mg PO DAILY 90 days # 90 tabs 10/25/22 tablet oxycodone 5 mg tablet 5 mg PO TID PRN pain, severe #14 10/25/24 tabs Allergies Allergy/AdvReac Type Severity Reaction Status Date / Time ethinyl estradiol (NuvaRing) Allergy Intermediate yeast Verified 10/25/24 09:51 infection etonogestrel (NuvaRing) Allergy Intermediate yeast Verified 10/25/24 09:51 infection medroxyprogesterone AdvReac Intermediate facial acne Verified 10/25/24 09:51 (Depo-Provera) [facility] Past Medical History Medical History Kidney stones Migraine headache Pyelonephritis Surgical History Hx of dilation and curettage Hx of dilation and curettage H/O tubal ligation Social History Social History Household Members: Children Housing: House Alcohol intake: current Alcohol intake frequency: holidays/special occasions only Patient Tobacco Use Status: Current everyday Tobacco user Tobacco use type: Cigarette Cigarettes Per Day: 2 Substance Use Type: Marijuana Advance Directives: No Advance Directives Information Provided: No service: No Current occupational status: employed 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[employer], 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 Physical Exam ED Vital Signs: Vital Signs - 24 hr 10/25/24 09:48 10/25/24 12:24 Temperature 97.6 F 97.6 F Pulse Rate 80 80 Respiratory Rate 18 18 Blood Pressure 98/55 L 98/55 L Pulse Oximetry 98 98 Oxygen Delivery Method Room Air Room Air BMI result Body Mass Index 24.6 Medications Administered Discontinued Medications Generic Name Dose Route Start Last Admin Trade Name Freq PRN Reason Stop Dose Admin Acetaminophen 975 mg 10/25/24 11:59 10/25/24 12:03 Acetaminophen 325 Mg Tablet PO 10/25/24 12:00 975 mg ONCE ONE Administration Discharge Plan Discharge Clinical Impression: Metatarsal fracture Qualifiers: Encounter type: initial encounter Metatarsal bone: fifth Fracture type: closed Fracture alignment: nondisplaced Laterality: right Qualified Code(s): S92.354A - Nondisplaced fracture of fifth metatarsal bone, right foot, initial encounter for closed fracture Patient Disposition: Home, Self-Care Instructions: Crutch Instructions (ED), Foot Fracture in Adults (ED) Additional Instructions: Rest. Ice. Elevate. Tylenol as directed, available [id number]. Oxycodone as directed for severe pain. This is a narcotic medication and may be habit-forming. Use with caution. Do not drive, drink alcohol or operate heavy machinery while taking this medication. Follow up with orthopedic referral Follow-up with your primary care provider. Call this week to schedule a follow- up appointment. Return to the emergency department if you have any worsening of symptoms, or any concerns. Get well soon! Prescriptions: New oxycodone 5 mg tablet 5 mg PO TID PRN (Reason: pain, severe) Qty: 14 0RF Rx Instructions: Partial Fill upon patient request. No Action pyridoxine (vitamin B6) 50 mg tablet 50 mg PO DAILY 90 Days Qty: 90 3RF Referrals: [facility] [place] Orthopedic Surgeons [Provider Group] Referral Note: right 5th metatarsal fx Stand Alone Forms: Work/School Release Interventions: ED Discharge Assessment Last Done: 10/25/24 12:24 Discharge Date/Time: 10/25/24 12:25 Print Language: Samoan
--- NOTE | 2024-10-25 12:07 | PC.NURSE ---
pt medicated in triage prior to d/c.
--- NOTE | 2024-10-25 12:21 | PC.NURSE ---
short ortho boot applied to right foot. pt tolerated well. pt provided w/ crutch training prior to d/c.
[2024-10-25 12:24] VITALS: BP 98/55; PULSE 80; RESP 18; TEMP 36.4; O2SAT 98
== END 2024-10-25 12:25 | disposition home or self-care (01) ==
PROVIDERS: Emergency Provider Emergency Medicine; PCP Internal Medicine
DX: S92.354A Nondisplaced fracture of fifth metatarsal bone, right foot, initial encounter for closed fracture (principal); W17.2XXA Fall into hole, initial encounter; Y93.9 Activity, unspecified; Y92.9 Unspecified place or not applicable; Y99.9 Unspecified external cause status; M79.671 Pain in right foot
CPT/HCPCS: 73600; 73630; 99283; 99284

== ENCOUNTER 2024-10-29 13:31 | Outpatient (AMB) | payer OTHER, SELFPAY ==
--- NOTE | 2024-10-29 13:37 | A.OFFVIS_ITS ---
Vital Signs 10/29/24 13:46 Height 5 ft 1 in Weight 130 lb BMI 24.6 Intake Visit Reasons: FC-Rt foot 5th metatarsal fx DOI: 10/24/24 Intake Note: Angeline is a 39 year old female who presents today for an ER follow up of right foot, 5th metatarsal fracture, DOI 10/24/24. Patient presented to [facility] ER the follow day after she stepped off a curb, not noticing a pot hole in the ground and had a fall. X-rays were taken, placed in a walking boot, and crutches were given. Today patient reports that she continues to have swelling. States throbbing pain that is located at the lateral aspect of foot, more near her ankle. She was prescribed oxycodone for her pain however she had to discontinue as this was causing vomiting. Unable to take ibuprofen due to upset stomach. Finds the Tylenol does not really help with pain. Allergies ethinyl estradiol (NuvaRing) Allergy (Intermediate, Verified 10/29/24 13:49) yeast infection etonogestrel (NuvaRing) Allergy (Intermediate, Verified 10/29/24 13:49) yeast infection medroxyprogesterone (Depo-Provera) Adverse Reaction (Intermediate, Verified 10/29/24 13:49) facial acne Medication List - Last Reconciled 10/29/24 by Arcadio Montgomery PA-C naproxen 500 mg PO BID PRN sumatriptan succinate 100 mg PO HPI HPI FC-Rt foot 5th metatarsal fx DOI: 10/24/24: Details: 39-year-old female presents to the office today for an injury she sustained to her right foot on 10/24/2024 while she was stepping off a curb and stepped into a pothole and rolled the foot. She was seen in the emergency department where x- rays were obtained showing a nondisplaced fracture at the base of the 5th metatarsal. She was given a walking boot and referred to our office for ortho eval. 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 There is some bruising of the lateral edge of the left foot. There is tenderness at the base of the 5th metatarsal. Sensation intact. EHL intact. No pain along the mediolateral malleolus. Neurovascularly intact. Office Procedures AMB Fracture Care Fracture Billing Code: Fracture Billing Code Results Reviewed Results Reviewed: X-rays of the right foot obtained in the emergency department are significant for a nondisplaced fracture at the base of the 5th metatarsal. Assessment & Plan Assessment & Plan (1) Fracture of fifth metatarsal bone of right foot: Code(s): S92.351A - Displaced fracture of fifth metatarsal bone, right foot, initial encounter for closed fracture Category: Medical Plan: Patient will continue with the boot weightbearing as tolerated. She can remove the boot for hygiene and resting and sleeping. I did explain the 1st 6 weeks after injury is the general healing time for the bone and the following 6 weeks is whe the bone is strong. First 6 weeks she can weightbear as tolerated with the boot and avoid impact activities like running and jumping. She can slowly transition to stiff-soled shoes that are comfortable as symptoms allow over the next couple of weeks. I encouraged her to avoid impact and running or jumping activities until she is approximately 6 weeks from injury. She can return to work without limitations. She will see me back as needed. Coding Level of Care Code New Pt Level 3 (35831) Complex EM visit Add On G2211 Diagnoses Fracture of fifth metatarsal bone of right foot S92.351A CPT Codes Fracture Care - Fracture Billing Code: Fracture Billing Code ([id number])
--- OUTSIDE RECORDS SUMMARY | 2024-10-29 13:41 | XMS_ITS | Clinical Summary ---
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 5 Active naproxen (NAPROSYN) 500 mg tablet TAKE 1 TABLET BY MOUTH TWICE A DAY NEEDED FOR HEADACHE 5 Active amitriptyline (ELAVIL) 10 mg tablet Take 1 tablet (10 mg total) by mouth. at bedtime. 5 Active methocarbamoL (ROBAXIN) 750 mg tablet Take 1 tablet (750 mg total) by mouth. 9 Active Social History Tobacco Use Types Packs/Day Years Used Date Smoking Tobacco: Never Assessed Comments Unknown Sex and Gender Information Value Date Recorded Sex Assigned at Not on file Legal Sex Female 2:15 AM EST Gender Identity Not on file Sexual Orientation Not on file Last Filed Vital Signs Vital Sign Reading Time Taken Comments Blood Pressure 111/74 07/01/2024 9:35 AM EDT Pulse 83 07/01/2024 9:35 AM EDT Temperature - - Respiratory Rate - - Oxygen Saturation - - Inhaled Oxygen Concentration - - Weight 60.1 kg (132 lb 8 oz) 07/01/2024 9:35 AM EDT Height 154.9 cm (5' 1 ) 07/01/2024 9:35 AM EDT Body Mass Index 25.04 07/01/2024 9:35 AM EDT Plan of Treatment Health Maintenance Due Date Last Done Comments Breast Cancer Screening 1985 Hepatitis B Vaccines (1 of 3 - 19+ 3-dose series) 01/05/2003 Cervical Cancer Screening: Pap Smear 01/05/2005 HIV Screening 02/11/2022 Hepatitis C Screening 02/11/2022 Social Influencers of Health Screening 02/11/2022 COVID-19 Vaccine (3 - season) 2023 10/17/2020, 07/19/2020 DTaP,Tdap,and Td Vaccines (2 - Td or Tdap) 12/18/2023 12/17/2013 Depression Screening 03/11/2024 Influenza Vaccine (#1) 2024 , 01/19/2021, 12/23/2020, Additional history exists HIB Vaccines Aged Out No longer eligi [...] age to complete this topic Pneumococcal Vaccine: Pediatrics (0 to 5 Years) and At-Risk Patients (6 to 49 Years) Aged Out No longer eligible based on patient's age to complete this topic RSV Immunization Patients Under 20 months Aged Out No longer eligible based on patient's age to complete this topic Varicella Vaccines Aged Out No longer eligible based on patient's age to complete this [place] [id number] MEDICA[place] - [place] Care Teams 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
[2024-10-29 13:46] VITALS: BMI 24.6
== END 2024-10-29 14:17 | disposition home or self-care (01) ==
LOC: HO.HOS 13:32
PROVIDERS: PCP Internal Medicine; Visit Provider Physician Assistant
DX: S92.351A Displaced fracture of fifth metatarsal bone, right foot, initial encounter for closed fracture (principal)
CPT/HCPCS: 99213

== ENCOUNTER → 2024-10-29 13:31 | Outpatient (BNVA) | payer OTHER, SELFPAY | PROVIDERS: PCP Internal Medicine; Visit Provider Physician Assistant | DX: S92.351A Displaced fracture of fifth metatarsal bone, right foot, initial encounter for closed fracture (principal) | CPT/HCPCS: 99212 ==